=== PATIENT | female | born 1940 | race Caucasian/White ===

== ENCOUNTER 2017-10-16 12:27 | Inpatient (IN) ==
--- NOTE | 2017-10-16 12:46 | Emergency Department Note ---
ED Disposition Clinical Impression: Colitis, Sinus tachycardia, Hyperglycemia UTI (urinary tract infection) Qualifiers: Urinary tract infection type: site unspecified Hematuria presence: without hematuria Qualified Code(s): N39.0 - Urinary tract infection, site not specified Disposition: Still a Patient Condition on Discharge: Fair Referrals: Vandana Plaza MD [Primary Care Provider] - - Critical Care Critical Care Time: No Attestation: On , the high probability of a clinically significant, sudden or life threatening deterioration of the following system(s) required my full and direct attention, intervention and personal management. The time I documented below is in addition to time spent performing reported procedures but includes the following listed in this critical care notation. Medical Decision Making - Win Inquiry Pt receiving controlled substance: No Vital Signs: 10/16/17 12:36 10/16/17 13:56 10/16/17 14:51 Temperature 98.0 F Temperature Source Temporal Artery Scan Pulse Rate [Right Brachial] 128 H 114 H 106 H Respiratory Rate 18 20 18 Blood Pressure [Right Arm] 175/100 158/81 160/97 Blood Pressure Mean [Right Arm] 125 106 118 Blood Pressure Source [Right Arm] Automatic Cuff Automatic Cuff Automatic Cuff Blood Pressure Position [Right Arm] Sitting Supine Sitting 02 Sat by Pulse Oximetry 97 100 98 Oxygen Delivery Method Room Air Room Air Room Air - Lab Data Lab Results 10/16/17 12:42: WBC 9.2, RBC 4.88, Hgb 13.1, Hct 42.5, MCV 87.0, MCH 26.9 L, MCHC 30.9 L, RDW 13.4, Plt Count 351, MPV 7.4, Neut % (Auto) 70.7, Lymph % (Auto ) 19.2, [place] % (Auto) 6.8, Eos % (Auto) 2.9, Baso % (Auto) 0.4, Neut # (Auto) 6.5, Lymph # (Auto) 1.8, [place] # (Auto) 0.6, Eos # (Auto) 0.3, Baso # (Auto) 0.0 10/16/17 12:42: Sodium 138, Potassium 3.2 L, Chloride 98, Carbon Dioxide 27, Anion Gap 16.2 H, BUN 13, Creatinine 0.97, Estimated Creat Clear 60, Estimated GFR 56 L, Est GFR ( Amer) 68, Glucose 209 H, Calcium 9.9, Total Bilirubin 0.5, AST 18, ALT 22, Alkaline Phosphatase 148 H, Total Protein 8.4 H, Albumin 3.7, Globulin 4.7 H, Albumin/Globulin Ratio 0.8 L 10/16/17 12:42: Troponin I < 0.02, Amylase 32, Lipase 95, TSH 0.88, Free T4 Index 4.1 L, Thyroxine (T4) 11.8, T3 Uptake 35 10/16/17 12:55: Stool Occult Blood Negative 10/16/17 13:20: Urine Color Yellow, Urine Appearance Cloudy, Urine pH 6.0, Ur Specific [place] >= 1.030, Urine Protein 1+, Urine Glucose (UA) Negative, Urine Ketones Trace, Urine Blood Negative, Urine Nitrate Negative, Urine Bilirubin Negative, Urine Urobilinogen 1.0, Ur Leukocyte Esterase 2+ A, Urine WBC 20-50, Ur Squamous Epith Cells 20-50, Urine Bacteria 4+, Urine Mucus 4+, Stool Occult Blood Cancelled Result diagrams: 10/16/17 12:42 10/16/17 12:42 Orders (Tests/Meds): ED MEDICATIONS Generic Name Dose Route Start Last Admin Trade Name Freq PRN Reason Stop Dose Admin Levofloxacin/Dextrose 750 mg in 150 mls @ 100 mls/hr 10/16/17 15:15 10/16/17 16:05 Levofloxacin 750mg/150ml Premix IV 10/30/17 15:14 100 mls/hr Q24H EZE Administration Protocol Discontinued Medications Generic Name Dose Route Start Last Admin Trade Name Freq PRN Reason Stop Dose Admin Metronidazole 100 mls @ 100 mls/hr 10/16/17 15:13 10/16/17 15:39 Flagyl 500mg/100ml Ivpb IV 10/16/17 16:12 100 mls/hr ONCE ONE Administration Protocol Iopamidol 75 ml 10/16/17 14:42 10/16/17 14:43 [id number]; 75ml Vial IV 10/16/17 14:43 75 ml ONCE ONE Administration Potassium Chloride 40 meq 10/16/17 15:13 10/16/17 15:39 Klor-Con 20meq Tablet PO 10/16/17 15:14 40 meq ONCE ONE Administration Sodium Chloride 10 ml 10/16/17 14:42 06/02/18 14:43 Rad-Saline Flush 10ml Syringe IV 10/16/17 14:43 10 ml ONCE ONE Administration Sodium Chloride 1,000 ml 10/16/17 15:18 10/16/17 15:31 Sod Chlor 0.9% 1000ml Bag IV 10/16/17 15:19 1,000 ml BOLUS ONE Administration ORDERS Category Date Time Status Urine Culture Stat Micro 10/16/17 13:20 Received - CT Data CT Scan: Abdomen, Pelvis Time Received: 15:[address] Reviewed: Yes: I have viewed the radiologist's interpretation Findings Narrative: Consistent with colitis. Diverticulosis without diverticulitis. - ECG Data Tracing #1 EKG interpreted by Anders Stiles MD: Rhythm: sinus tachycardia Rate: 123 [place]: normal Ectopy: none Conduction: normal ST Segment Changes: none T Wave Changes: none Q Waves: none No evidence of acute ischemia or injury Poor R-wave progression General Adult HPI - General Chief complaint: Abdominal Pain Stated complaint: Abd Pain Time Seen by Provider: 10/16/17 12:45 Mode of Arrival: Wheelchair Limitations: No Limitations Description of Symptoms (Recalled from ER Triage Doc. by RN): soft reddish stool and belly discomfort; feels like might have a hemorrhoid down there but not sure (rectum). been going on for a few days - History of Present Illness HPI narrative: Abdominal problems since after [place], approximately 6 months. She complains of generalized abdominal pain and cramping, thin caliber soft stools, occasional blood in stool. Denies vomiting or fever. Has tried over-the- counter ibuprofen without relief. Has not seen her PCP. States she has never had a colonoscopy. She is on no prescription medications at this time. - Related Data Home Medications Medication Instructions Recorded Confirmed No Known Home Medications 10/16/17 10/16/17 Allergies Allergy/AdvReac Type Severity Reaction Status Date / Time No Known Allergies Allergy Verified 10/16/17 12:40 [facility] History I have reviewed the patient's past medical history: Yes Medical History: Denies:: Diabetes Mellitus Type 1, Diabetes Mellitus Type 2 - Social History Educational Level: Completed High School Smoking Status: Unknown if ever smoked Alcohol Intake: never - Psychiatric History Expresses thoughts of harming self/others: None Suicide Plan Description: No Plan ROS Obtained: Yes All systems reviewed & no additional complaints - Constitutional Constitutional: Denies fever(s) - Cardiovascular Cardiovascular: Denies chest pain - Gastrointestinal Gastrointestingal: Reports: abdominal pain, bloating, change in bowel habits, cramping, excessive passing of gas, bright red blood in stools Physical Exam - General General appearance: alert, in no apparent distress, anxious - Head Head exam: atraumatic, normocephalic, normal inspection - Eye Eye exam: Present: normal appearance, PERRL, EOMI - ENT ENT exam: Present: normal exam, normal oropharynx, mucous membranes moist, TM's normal bilaterally, normal external ear exam - Neck Neck exam: Present: normal inspection, full ROM, trachea midline. Absent: meningismus, lymphadenopathy - Chest Chest inspection: Present: normal inspection, symmetric chest wall rise. Absent : tenderness - Respiratory Respiratory exam: Present: normal lung sounds bilaterally. Absent: respiratory distress - Cardiovascular Cardiovascular exam: Present: regular rate, normal rhythm. Absent: JVD - Abdominal Exam Abdominal exam: Present: soft, tenderness, normal bowel sounds. Absent: distention, guarding Abdominal tenderness: Present: diffuse - Rectal Exam comment: External hemorrhoids. No active bleeding, no thrombosed hemorrhoids. No rectal masses palpated. Stool is soft brown without visible blood. - Extremities Exam Extremities exam: Present: normal inspection, full ROM, normal capillary refill. Absent: calf tenderness - Back Exam Back exam: Present: normal inspection. Absent: tenderness - Neurological Exam Neurological exam: Present: alert, oriented X3 - Psychiatric Psychiatric exam: Present: normal affect, normal mood - Skin Skin exam: Present: warm, dry, intact, normal color - Lymphatic Lymphatic Findings: no adenopathy
[2017-10-16 12:59] LABS: Basophils % 0.4 % (0.1-2.0); Eosinophils # 0.3 K/mm3 (0.0-0.4); Eosinophils % 2.9 % (0.1-12.0); Hematocrit 42.5 % (37.0-47.0); Hemoglobin 13.1 g/dL (12.2-16.2); Lymphocytes # 1.8 K/mm3 (0.7-4.5); Lymphocytes % 19.2 K/mm3 (10-50); Mean Corpuscular HGB Conc 30.9 g/dL (31.8-35.4); Mean Corpuscular Hemoglobin 26.9 pg (27.0-31.2); Mean Platelet Volume 7.4 fl (7.4-10.4); Monocytes # 0.6 K/mm3 (0.1-1.0); Monocytes % 6.8 % (1.7-9.3); Neutrophils # 6.5 K/mm3 (1.8-7.8); Neutrophils % 70.7 % (37.0-80.0); Platelet Count 351 K/mm3 (142-424); Red Blood Count 4.88 M/mm3 (4.20-5.40); Red Cell Distribution Width 13.4 % (11.5-17.5); White Blood Count 9.2 K/mm3 (4.8-10.8)
[2017-10-16 13:06] LABS: Albumin Level 3.7 gm/dL (3.4-5.0); Albumin/Globulin Ratio 0.8 (1.1-1.8); Anion Gap 16.2 mEq/L (5-15); Bilirubin,Total 0.5 mg/dL (0.2-1.0); Calcium 9.9 mg/dL (8.5-10.1); Globulin 4.7 gm/dl (1.3-3.2); Potassium 3.2 mmoL/L (3.5-5.1); Total Protein,Serum 8.4 gm/dL (6.4-8.2)
[2017-10-16 13:24] LABS: Amylase 32 U/L (25-125); Free Thyroxine Index 4.1 ug/dL (5.93-13.13); Lipase 95 u/L (73-393); T4 (Thyroxine) 11.8 ug/dl (4.7-13.3); Thyroid Stimulating Hormone 0.88 uIU/ml (0.358-3.740); Triiodothryronine (T3) Uptake 35 % (31-39)
[2017-10-16 13:25] LABS: Microscopic, Urine URINE MICROSCOPIC (MICROSCOPIC)
[2017-10-16 13:26] LABS: Appearance,Urine CLOUDY (Clear); Blood, Urine Negative (Negative); Color,Urine YELLOW (Yellow); Glucose,Urine (UA) Negative (Negative); Ketones,Urine TRACE (Negative); Leukocyte Esterase,Urine 2+ (Negative); Protein,Urine 1+ (Negative); Specific Gravity, Urine >= 1.030 (1.005-1.030)
[2017-10-16 13:42] LABS: Bilirubin,Urine Negative (Negative)
[2017-10-16 13:43] LABS: Bacteria,Urine 4+ /lpf; Mucus,Urine 4+ /lpf; Squamous Epithelial Cell,Urine 20-50 #/hpf (0-5); WBC,Urine 20-50 #/hpf (0-3)
[2017-10-17 06:31] LABS: Anion Gap 13.8 mEq/L (5-15); Potassium 3.8 mmoL/L (3.5-5.1)
--- NOTE | 2017-10-17 08:12 | History & Physical Report ---
*Admission Date: 10/16/17 *Chief complaint: Left lower quadrant abdominal pain and nausea *History of present illness: Pleasant 77-year-old white female who takes no medications and has not seen a doctor in over 6 months, who over the past several months has struggled with left lower quadrant pain, some chronic abdominal pain issues, vomiting and occasional nausea. She has been following a very high-fiber diet with a lot of shredded wheat, and taking ibuprofen for her abdominal discomfort. This became intolerable and she came to the emergency department last night where she was found to have acute kidney injury, and abdominal pain, CT scan showed evidence of colitis, and diverticulitis. She was admitted to hospital for IV antibiotics, fluids and further diagnostic testing. [facility] History I have reviewed the patient's past medical history: Yes Medical History: Denies:: Diabetes Mellitus Type 1, Diabetes Mellitus Type 2 - *Social History Educational Level: Completed GED/General Educational Development Smoking Status: Never smoker Alcohol Intake: never Occupational Status: retired Housing: apartment - Psychiatric History Expresses thoughts of harming self/others: None Suicide Plan Description: No Plan *Family Hx:: Coronary Artery Disease, Heart Attack, Hyperlipidemia, Hypertension Review of Systems - Review of Systems Review of systems:: unable to obtain, other, pertinent systems reviewed and negative unless documented below Meds Home Medications Medication Instructions Recorded Confirmed Type No Known Home Medications 10/16/17 10/16/17 History Allergies Allergy/AdvReac Type Severity Reaction Status Date / Time No Known Allergies Allergy Verified 10/16/17 12:40 Exam Vital signs and Labs for Last 24 Hours: Temp Pulse Resp BP Pulse Ox 98.1 F 84 18 154/73 98 10/17/17 07:56 10/17/17 07:56 10/17/17 07:56 10/17/17 07:56 10/17/17 07:56 Laboratory Results - last 24 hr 10/16/17 12:42: WBC 9.2, RBC 4.88, Hgb 13.1, Hct 42.5, MCV 87.0, MCH 26.9 L, MCHC 30.9 L, RDW 13.4, Plt Count 351, MPV 7.4, Neut % (Auto) 70.7, Lymph % (Auto ) 19.2, [place] % (Auto) 6.8, Eos % (Auto) 2.9, Baso % (Auto) 0.4, Neut # (Auto) 6.5, Lymph # (Auto) 1.8, [place] # (Auto) 0.6, Eos # (Auto) 0.3, Baso # (Auto) 0.0 10/16/17 12:42: Sodium 138, Potassium 3.2 L, Chloride 98, Carbon Dioxide 27, Anion Gap 16.2 H, BUN 13, Creatinine 0.97, Estimated Creat Clear 60, Estimated GFR 56 L, Est GFR ( Amer) 68, Glucose 209 H, Calcium 9.9, Total Bilirubin 0.5, AST 18, ALT 22, Alkaline Phosphatase 148 H, Total Protein 8.4 H, Albumin 3.7, Globulin 4.7 H, Albumin/Globulin Ratio 0.8 L 10/16/17 12:42: Troponin I < 0.02, Amylase 32, Lipase 95, TSH 0.88, Free T4 Index 4.1 L, Thyroxine (T4) 11.8, T3 Uptake 35 10/16/17 12:55: Stool Occult Blood Negative 10/16/17 13:20: Urine Color Yellow, Urine Appearance Cloudy, Urine pH 6.0, Ur Specific [place] >= 1.030, Urine Protein 1+, Urine Glucose (UA) Negative, Urine Ketones Trace, Urine Blood Negative, Urine Nitrate Negative, Urine Bilirubin Negative, Urine Urobilinogen 1.0, Ur Leukocyte Esterase 2+ A, Urine WBC 20-50, Ur Squamous Epith Cells 20-50, Urine Bacteria 4+, Urine Mucus 4+, Stool Occult Blood Cancelled 10/16/17 17:58: POC Glucose 84 10/16/17 21:42: POC Glucose 89 10/17/17 05:40: Sodium 141, Potassium 3.8, Chloride 103, Carbon Dioxide 28, Anion Gap 13.8, BUN 8 D, Creatinine 0.68 D, Estimated Creat Clear 63, Estimated GFR 84, Est GFR ( Amer) 102 D, Glucose 108 H D 10/17/17 06:14: POC Glucose 104 I & O for Last 24 hours: Intake & Output 10/14/17 10/15/17 10/16/17 10/17/17 11:59 11:59 11:59 11:59 Intake Total 180 / 180 Balance 180 / 180 Weight 184 lb Microbiology Reports for the Last 24 Hours: Microbiology 10/16/17 13:20 Urine,Clean Catch Urine Culture - Preliminary Narrative: Pleasant white female. Alert, oriented 3. Oropharynx clear. Cranial nerves intact. Heart rate regular without murmurs. Lungs are clear. Abdomen is soft , does have tenderness along the left flank area but no rebound or guarding. No upper quadrant tenderness. No masses. No CVA tenderness. No peripheral edema or clubbing. H&P: Result - Labs Labs: Short CBC 10/16/17 Range/Units 12:42 WBC 9.2 (4.8-10.8) K/mm3 Hgb 13.1 (12.2-16.2) g/dL Hct 42.5 (37.0-47.0) % Plt Count 351 (142-424) K/mm3 BMP 10/16/17 10/17/17 12:42 05:40 Sodium 138 141 Potassium 3.2 L 3.8 Chloride 98 103 Carbon Dioxide 27 28 BUN 13 8 D Creatinine 0.97 0.68 D Glucose 209 H 108 H D Calcium 9.9 Cardiac Enzymes 10/16/17 Range/Units 12:42 Troponin I < 0.02 (0.00-0.06) ng/ml Liver Function 10/16/17 Range/Units 12:42 Total Bilirubin 0.5 (0.2-1.0) mg/dL AST 18 (15-37) U/L ALT 22 (12-78) U/L Alkaline Phosphatase 148 H (46-116) U/L Albumin 3.7 (3.4-5.0) gm/dL Urine 10/16/17 Range/Units 13:20 Urine Color Yellow (Yellow) Urine Appearance Cloudy (Clear) Urine pH 6.0 (5.0-8.5) Ur Specific [place] >= 1.030 (1.005-1.030) Urine Protein 1+ (Negative) Urine Glucose (UA) Negative (Negative) Assessment and Plan (1) Colitis Current visit: Yes Status: Acute Category: Medical Code(s): K52.9 - Noninfective gastroenteritis and colitis, unspecified (2) UTI (urinary tract infection) Current visit: Yes Status: Acute Qualifiers: Urinary tract infection type: site unspecified Hematuria presence: without hematuria Qualified Code(s): N39.0 - Urinary tract infection, site not specified Category: Medical Code(s): N39.0 - Urinary tract infection, site not specified - Assessment and plan all Dx Assessment and Plan for all problems:: Agree with admission to hospital. Continue current antibiotics. Cautiously advance diet. Back down to clear liquids if she has problems this morning. Gallbladder ultrasound was done this morning. Follow report. Check labs tomorrow morning. Discussed with patient that she will need colonoscopy in the near future.
--- NOTE | 2017-10-17 10:28 | Pharmacy Consult Notes ---
[facility] Pharmacy VTE Monitoring - Patient Demographics Admission date: 10/17/17 Report Date: 10/17/17 Time: 10:28 Allergies/Adverse Reactions: Patient Allergies No Known Allergies Allergy (Verified 10/16/17 12:40) Height: 1.6 m Weight: 83.461 kg Patient Problems: Current Active Problems Colitis (Acute) UTI (urinary tract infection) (Acute) Sinus tachycardia (Acute) Hyperglycemia (Acute) - VTE Risk Labs: VTE Related Lab Results Hgb 13.1 g/dL (12.2-16.2) 10/16/17 12:42 Hct 42.5 % (37.0-47.0) 10/16/17 12:42 Plt Count 351 K/mm3 (142-424) 10/16/17 12:42 BUN 8 mg/dL (7-18) D 10/17/17 05:40 Creatinine 0.68 mg/dL (0.55-1.02) D 10/17/17 05:40 Estimated Creat Clear 63 mL/min (0-300) 10/17/17 05:40 VTE Risk Level: Low Risk - Prophylaxis Types of VTE Prophylaxis: TEDS Knee High Location of Applied Device: Bilateral Lower Extremeties (TEDS ORDERED)
[2017-10-18 06:04] LABS: Basophils % 0.4 % (0.1-2.0); Eosinophils # 0.3 K/mm3 (0.0-0.4); Eosinophils % 4.2 % (0.1-12.0); Hematocrit 33.5 % (37.0-47.0); Hemoglobin 10.2 g/dL (12.2-16.2); Lymphocytes # 1.3 K/mm3 (0.7-4.5); Lymphocytes % 19.1 K/mm3 (10-50); Mean Corpuscular HGB Conc 30.4 g/dL (31.8-35.4); Mean Corpuscular Hemoglobin 26.7 pg (27.0-31.2); Mean Platelet Volume 7.9 fl (7.4-10.4); Monocytes # 0.6 K/mm3 (0.1-1.0); Monocytes % 9.4 % (1.7-9.3); Neutrophils # 4.5 K/mm3 (1.8-7.8); Neutrophils % 66.8 % (37.0-80.0); Platelet Count 237 K/mm3 (142-424); Red Blood Count 3.81 M/mm3 (4.20-5.40); Red Cell Distribution Width 13.5 % (11.5-17.5); White Blood Count 6.8 K/mm3 (4.8-10.8)
[2017-10-18 06:18] LABS: Albumin Level 2.7 gm/dL (3.4-5.0); Albumin/Globulin Ratio 0.8 (1.1-1.8); Anion Gap 8.7 mEq/L (5-15); Bilirubin,Total 0.4 mg/dL (0.2-1.0); Globulin 3.5 gm/dl (1.3-3.2); Potassium 3.7 mmoL/L (3.5-5.1); Total Protein,Serum 6.2 gm/dL (6.4-8.2)
--- NOTE | 2017-10-18 06:49 | Progress Note ---
Internal Medicine - PN: Subj *Date: 10/18/17 *Time: 06:47 Interval history: Patient does not feel well this morning. She tells me she had onset of some crampy abdominal pain with passing of loose stool followed by nausea and urge to vomit. She has not vomited yet. Up until this point the last 24 hours had gone relatively well for the patient. She denies any fevers. She denies blood in her stool Exam Vital signs and Labs for Last 24 Hours: Temp Pulse Resp BP Pulse Ox 98.3 F 79 20 144/71 97 10/18/17 04:05 10/18/17 04:05 10/18/17 04:05 10/18/17 04:05 10/18/17 04:05 Laboratory Results - last 24 hr 10/17/17 11:21: POC Glucose 114 H 10/17/17 16:54: POC Glucose 99 10/17/17 19:52: POC Glucose 113 H 10/18/17 05:30: WBC 6.8 D, RBC 3.81 L, Hgb 10.2 L, Hct 33.5 L, MCV 88.0, MCH 26.7 L, MCHC 30.4 L, RDW 13.5, Plt Count 237 D, MPV 7.9, Neut % (Auto) 66.8, Lymph % (Auto) 19.1, [place] % (Auto) 9.4 H, Eos % (Auto) 4.2, Baso % (Auto) 0.4, Neut # (Auto) 4.5, Lymph # (Auto) 1.3, [place] # (Auto) 0.6, Eos # (Auto) 0.3, Baso # (Auto) 0.0 10/18/17 05:30: Sodium 140, Potassium 3.7, Chloride 106, Carbon Dioxide 29, Anion Gap 8.7, BUN 6 L, Creatinine 0.68, Estimated Creat Clear 63, Estimated GFR 84, Est GFR ( Amer) 102, Glucose 111 H, Total Bilirubin 0.4, AST 13 L D, ALT 17, Alkaline Phosphatase 99, Total Protein 6.2 L D, Albumin 2.7 L, Globulin 3.5 H, Albumin/Globulin Ratio 0.8 L 10/18/17 06:10: POC Glucose 106 I & O for Last 24 hours: Intake & Output 10/15/17 10/16/17 10/17/17 10/18/17 11:59 11:59 11:59 11:59 Intake Total 280 / 280 900 / 900 Balance 280 / 280 900 / 900 Weight 184 lb Microbiology Reports for the Last 24 Hours: Microbiology 10/16/17 13:20 Urine,Clean Catch Urine Culture - Preliminary Narrative: Patient is awake and alert and looks like she does not feel well. Lungs are clear. Heart has a regular rate and rhythm. Abdomen is soft with left flank and left lower quadrant tenderness to palpation without rebound tenderness or guarding. Bowel sounds are present. Assessment and Plan (1) Colitis Current visit: Yes Status: Acute Category: Medical Code(s): K52.9 - Noninfective gastroenteritis and colitis, unspecified (2) UTI (urinary tract infection) Current visit: Yes Status: Acute Qualifiers: Urinary tract infection type: site unspecified Hematuria presence: without hematuria Qualified Code(s): N39.0 - Urinary tract infection, site not specified Category: Medical Code(s): N39.0 - Urinary tract infection, site not specified (3) Hyperglycemia Current visit: Yes Status: Acute Category: Medical Code(s): R73.9 - Hyperglycemia, unspecified - Assessment and plan all Dx Assessment and Plan for all problems:: 1. Continue current IV antibiotic regimen and reassess this afternoon 2. Check A1c
[2017-10-18 08:56] LABS: Calcium 8.9 mg/dL (8.5-10.1)
--- NOTE | 2017-10-18 09:00 | Consult Report ---
<Dot Borja - Last Filed: 10/18/17 08:56> *Admission Date: 10/17/17 *Chief complaint: colitis *History of present illness: Pleasant 77-year-old white female who takes no medications and has not seen a doctor in over 6 months, who over the past several months has struggled with left lower quadrant pain, some chronic abdominal pain issues, vomiting and occasional nausea. She has been following a very high-fiber diet with a lot of shredded wheat, and taking ibuprofen for her abdominal discomfort. This became intolerable and she came to the emergency department where she was found to have acute kidney injury, and abdominal pain, CT scan showed evidence of colitis, and diverticulitis. She was admitted to hospital for IV antibiotics, fluids and further diagnostic testing. GI was consulted. Pt is on IV ABX and planned to be d/c home today per PCP. [facility] History Medical History: Denies:: Diabetes Mellitus Type 1, Diabetes Mellitus Type 2 - *Social History Educational Level: Completed GED/General Educational Development Smoking Status: Never smoker Alcohol Intake: never Occupational Status: retired Housing: apartment - Psychiatric History Expresses thoughts of harming self/others: None Suicide Plan Description: No Plan *Family Hx:: Coronary Artery Disease, Heart Attack, Hyperlipidemia, Hypertension Review of Systems - Review of Systems Review of systems:: pertinent systems reviewed and negative unless documented below - Constitutional Reports malaise - *Gastrointestinal Reports abdominal pain, Reports change in stools, Reports nausea Meds Home Medications Medication Instructions Recorded Confirmed Type No Known Home Medications 10/16/17 10/16/17 History Allergies Allergy/AdvReac Type Severity Reaction Status Date / Time No Known Allergies Allergy Verified 10/16/17 12:40 Exam Vital signs and Labs for Last 24 Hours: Temp Pulse Resp BP Pulse Ox 98.6 F 81 16 167/79 97 10/18/17 08:00 10/18/17 08:00 10/18/17 08:00 10/18/17 08:00 10/18/17 08:05 Laboratory Results - last 24 hr 10/17/17 11:21: POC Glucose 114 H 10/17/17 16:54: POC Glucose 99 10/17/17 19:52: POC Glucose 113 H 10/18/17 05:30: WBC 6.8 D, RBC 3.81 L, Hgb 10.2 L, Hct 33.5 L, MCV 88.0, MCH 26.7 L, MCHC 30.4 L, RDW 13.5, Plt Count 237 D, MPV 7.9, Neut % (Auto) 66.8, Lymph % (Auto) 19.1, [place] % (Auto) 9.4 H, Eos % (Auto) 4.2, Baso % (Auto) 0.4, Neut # (Auto) 4.5, Lymph # (Auto) 1.3, [place] # (Auto) 0.6, Eos # (Auto) 0.3, Baso # (Auto) 0.0 10/18/17 05:30: Sodium 140, Potassium 3.7, Chloride 106, Carbon Dioxide 29, Anion Gap 8.7, BUN 6 L, Creatinine 0.68, Estimated Creat Clear 63, Estimated GFR 84, Est GFR ( Amer) 102, Glucose 111 H, Total Bilirubin 0.4, AST 13 L D, ALT 17, Alkaline Phosphatase 99, Total Protein 6.2 L D, Albumin 2.7 L, Globulin 3.5 H, Albumin/Globulin Ratio 0.8 L 10/18/17 06:10: POC Glucose 106 10/18/17 07:15: Hemoglobin A1c 5.7 I & O for Last 24 hours: Intake & Output 10/15/17 10/16/17 10/17/17 10/18/17 23:59 23:59 23:59 23:59 Intake Total 180 / 180 1000 / 1000 2709 / 2709 Balance 180 / 180 1000 / 1000 2709 / 2709 Weight 184 lb 184 lb Microbiology Reports for the Last 24 Hours: Microbiology 10/16/17 13:20 Urine,Clean Catch Urine Culture - Preliminary - *Routine Abdominal Exam Present: soft, tenderness Comments: LLQ tenderness Internal Medicine - CN: Reslt - Labs CBC & Chem 7: 10/18/17 05:30 10/18/17 05:30 Labs: Short CBC 10/18/17 Range/Units 05:30 WBC 6.8 D (4.8-10.8) K/mm3 Hgb 10.2 L (12.2-16.2) g/dL Hct 33.5 L (37.0-47.0) % Plt Count 237 D (142-424) K/mm3 BMP 10/18/17 05:30 Sodium 140 Potassium 3.7 Chloride 106 Carbon Dioxide 29 BUN 6 L Creatinine 0.68 Glucose 111 H Liver Function 10/18/17 Range/Units 05:30 Total Bilirubin 0.4 (0.2-1.0) mg/dL AST 13 L D (15-37) U/L ALT 17 (12-78) U/L Alkaline Phosphatase 99 (46-116) U/L Albumin 2.7 L (3.4-5.0) gm/dL Assessment and Plan (1) Colitis Current visit: Yes Status: Acute Category: Medical Code(s): K52.9 - Noninfective gastroenteritis and colitis, unspecified (2) UTI (urinary tract infection) Current visit: Yes Status: Acute Qualifiers: Urinary tract infection type: site unspecified Hematuria presence: without hematuria Qualified Code(s): N39.0 - Urinary tract infection, site not specified Category: Medical Code(s): N39.0 - Urinary tract infection, site not specified (3) Hyperglycemia Current visit: Yes Status: Acute Category: Medical Code(s): R73.9 - Hyperglycemia, unspecified - Assessment and plan all Dx Assessment and Plan for all problems:: Agree with oral ABXC at d/c and with pain meds. Pt needs to stop all NSAID therapy and use only Tylenol products. Pt to f/u with me in the outpt clininc in 2-3 weeks and will schedule colonoscopy at that time for eval. Low Residue diet is preferred. <Vin Quinonez - Last Filed: 10/18/17 14:47> *History of present illness: I agree with oral antibiotics, soft lower residue diet, avoidance of NSAIDs and the patient will follow-up in the specialty clinic in 2 or 3 weeks. At that point, would schedule outpatient diagnostic colonoscopy. Exam Vital signs and Labs for Last 24 Hours: Temp Pulse Resp BP Pulse Ox 98.6 F 81 16 167/79 97 10/18/17 08:00 10/18/17 08:00 10/18/17 08:00 10/18/17 08:00 10/18/17 08:05 Laboratory Results - last 24 hr 10/17/17 11:21: POC Glucose 114 H 10/17/17 16:54: POC Glucose 99 10/17/17 19:52: POC Glucose 113 H 10/18/17 05:30: WBC 6.8 D, RBC 3.81 L, Hgb 10.2 L, Hct 33.5 L, MCV 88.0, MCH 26.7 L, MCHC 30.4 L, RDW 13.5, Plt Count 237 D, MPV 7.9, Neut % (Auto) 66.8, Lymph % (Auto) 19.1, [place] % (Auto) 9.4 H, Eos % (Auto) 4.2, Baso % (Auto) 0.4, Neut # (Auto) 4.5, Lymph # (Auto) 1.3, [place] # (Auto) 0.6, Eos # (Auto) 0.3, Baso # (Auto) 0.0 10/18/17 05:30: Sodium 140, Potassium 3.7, Chloride 106, Carbon Dioxide 29, Anion Gap 8.7, BUN 6 L, Creatinine 0.68, Estimated Creat Clear 63, Estimated GFR 84, Est GFR ( Amer) 102, Glucose 111 H, Calcium 8.9 D, Total Bilirubin 0.4, AST 13 L D, ALT 17, Alkaline Phosphatase 99, Total Protein 6.2 L D, Albumin 2.7 L, Globulin 3.5 H, Albumin/Globulin Ratio 0.8 L 10/18/17 06:10: POC Glucose 106 10/18/17 07:15: Hemoglobin A1c 5.7 10/18/17 11:13: POC Glucose 99 I & O for Last 24 hours: Intake & Output 10/15/17 10/16/17 10/17/17 10/18/17 23:59 23:59 23:59 23:59 Intake Total 180 / 180 1150 / 1150 2809 / 2809 Balance 180 / 180 1150 / 1150 2809 / 2809 Weight 83.461 kg 83.461 kg Microbiology Reports for the Last 24 Hours: Microbiology 10/16/17 13:20 Urine,Clean Catch Urine Culture - Final Multiple organisms, suggests contamination. Internal Medicine - CN: Reslt - Labs CBC & Chem 7: 10/18/17 05:30 10/18/17 05:30 Labs: Short CBC 10/18/17 Range/Units 05:30 WBC 6.8 D (4.8-10.8) K/mm3 Hgb 10.2 L (12.2-16.2) g/dL Hct 33.5 L (37.0-47.0) % Plt Count 237 D (142-424) K/mm3 BMP 10/18/17 05:30 Sodium 140 Potassium 3.7 Chloride 106 Carbon Dioxide 29 BUN 6 L Creatinine 0.68 Glucose 111 H Calcium 8.9 D Liver Function 10/18/17 Range/Units 05:30 Total Bilirubin 0.4 (0.2-1.0) mg/dL AST 13 L D (15-37) U/L ALT 17 (12-78) U/L Alkaline Phosphatase 99 (46-116) U/L Albumin 2.7 L (3.4-5.0) gm/dL Assessment and Plan (1) Colitis Current visit: Yes Status: Acute Category: Medical Code(s): K52.9 - Noninfective gastroenteritis and colitis, unspecified (2) UTI (urinary tract infection) Current visit: Yes Status: Acute Qualifiers: Urinary tract infection type: site unspecified Hematuria presence: without hematuria Qualified Code(s): N39.0 - Urinary tract infection, site not specified Category: Medical Code(s): N39.0 - Urinary tract infection, site not specified (3) Hyperglycemia Current visit: Yes Status: Acute Category: Medical Code(s): R73.9 - Hyperglycemia, unspecified
[2017-10-19 06:52] LABS: Basophils % 0.5 % (0.1-2.0); Eosinophils # 0.2 K/mm3 (0.0-0.4); Eosinophils % 3.2 % (0.1-12.0); Hematocrit 35.1 % (37.0-47.0); Lymphocytes # 1.3 K/mm3 (0.7-4.5); Lymphocytes % 18.6 K/mm3 (10-50); Mean Corpuscular HGB Conc 31.3 g/dL (31.8-35.4); Mean Corpuscular Hemoglobin 27.4 pg (27.0-31.2); Mean Corpuscular Volume 87.4 fl (81-99); Mean Platelet Volume 8.4 fl (7.4-10.4); Monocytes # 0.5 K/mm3 (0.1-1.0); Monocytes % 7.6 % (1.7-9.3); Neutrophils # 4.9 K/mm3 (1.8-7.8); Neutrophils % 70.2 % (37.0-80.0); Platelet Count 260 K/mm3 (142-424); Red Blood Count 4.02 M/mm3 (4.20-5.40); Red Cell Distribution Width 13.5 % (11.5-17.5)
--- NOTE | 2017-10-19 07:01 | Discharge Summary ---
General - General Admission date:: 10/18/17 Discharge date: 10/19/17 HPI HPI: Pleasant 77-year-old white female who takes no medications and has not seen a doctor in over 6 months, who over the past several months has struggled with left lower quadrant pain, some chronic abdominal pain issues, vomiting and occasional nausea. She has been following a very high-fiber diet with a lot of shredded wheat, and taking ibuprofen for her abdominal discomfort. This became intolerable and she came to the emergency department last night where she was found to have acute kidney injury, and abdominal pain, CT scan showed evidence of colitis, and diverticulitis. She was admitted to hospital for IV antibiotics, fluids and further diagnostic testing. Hospital Course Hospital Course: Patient was admitted and placed on Levaquin and metronidazole. She had good response to IV antibiotics. Diarrhea panel was performed and was negative for viral or bacterial source of infection. On the morning of October 18 patient had an episode of increased abdominal pain with diarrhea. GI was consulted and agreed with treatment to continue IV antibiotics, avoid NSAIDs and patient would need colonoscopy in the future. She will follow-up in the GI clinic in 2- 3 weeks. On the morning of the the patient continued to have some loose stools but overall felt better with significant decrease in her pain. She was tolerating liquids and some low residue foods. Patient was discharged home. She will follow-up in my office in 1 week. Follow-up in GI clinic in 2-3 weeks. Objective Vital signs: Temp Pulse Resp BP Pulse Ox 97.7 F 85 22 144/78 96 10/19/17 03:58 10/19/17 03:58 10/19/17 03:58 10/19/17 03:58 10/19/17 03:58 Results Labs on day of discharge: Labs from last 24 hours 10/19/17 10/19/17 10/18/17 06:26 05:58 21:54 WBC 7.0 RBC 4.02 L Hgb 11.0 L Hct 35.1 L MCV 87.4 MCH 27.4 MCHC 31.3 L RDW 13.5 Plt Count 260 MPV 8.4 Neut % (Auto) 70.2 Lymph % (Auto) 18.6 [place] % (Auto) 7.6 Eos % (Auto) 3.2 Baso % (Auto) 0.5 Neut # (Auto) 4.9 Lymph # (Auto) 1.3 [place] # (Auto) 0.5 Eos # (Auto) 0.2 Baso # (Auto) 0.0 POC Glucose 106 Hemoglobin A1c Calcium Stl Aeromonas (PCR) Not detected Stl C. cayetanensis PCR Not detected Stool Rotavirus (PCR) Not detected Stl Adenov F 40/41 PCR Not detected Stool Astrovirus (PCR) Not detected Stool Campylobacter PCR Not detected Stl C.difficile Tox PCR Not detected Stool Cryptosporidium PCR Not detected Stl E.coli Shiga Tox PCR Not detected Stool E coli O157 PCR Not detected Stl Enterotoxigenic E PCR Not detected Stool EPEC (PCR) Not detected Stool EAEC (PCR) Not detected Stl E. histolytica PCR Not detected Stool Giardia Lamblia PCR Not detected Stool Salmonella PCR Not detected Stool Sapovirus (PCR) Not detected Stl P. shigelloides PCR Not detected Stl Shigella/EIEC PCR Not detected St Y.enterocolitica PCR Not detected Stool Vibrio (PCR) Not detected Stl Vibrio cholerae PCR Not detected Stl Norovirus GI/GII PCR Not detected 10/18/17 10/18/17 10/18/17 20:01 16:35 11:13 WBC RBC Hgb Hct MCV MCH MCHC RDW Plt Count MPV Neut % (Auto) Lymph % (Auto) [place] % (Auto) Eos % (Auto) Baso % (Auto) Neut # (Auto) Lymph # (Auto) [place] # (Auto) Eos # (Auto) Baso # (Auto) POC Glucose 99 86 99 Hemoglobin A1c Calcium Stl Aeromonas (PCR) Stl C. cayetanensis PCR Stool Rotavirus (PCR) Stl Adenov F 40/41 PCR Stool Astrovirus (PCR) Stool Campylobacter PCR Stl C.difficile Tox PCR Stool Cryptosporidium PCR Stl E.coli Shiga Tox PCR Stool E coli O157 PCR Stl Enterotoxigenic E PCR Stool EPEC (PCR) Stool EAEC (PCR) Stl E. histolytica PCR Stool Giardia Lamblia PCR Stool Salmonella PCR Stool Sapovirus (PCR) Stl P. shigelloides PCR Stl Shigella/EIEC PCR St Y.enterocolitica PCR Stool Vibrio (PCR) Stl Vibrio cholerae PCR Stl Norovirus GI/GII PCR 10/18/17 10/18/17 07:15 05:30 WBC RBC Hgb Hct MCV MCH MCHC RDW Plt Count MPV Neut % (Auto) Lymph % (Auto) [place] % (Auto) Eos % (Auto) Baso % (Auto) Neut # (Auto) Lymph # (Auto) [place] # (Auto) Eos # (Auto) Baso # (Auto) POC Glucose Hemoglobin A1c 5.7 Calcium 8.9 D Stl Aeromonas (PCR) Stl C. cayetanensis PCR Stool Rotavirus (PCR) Stl Adenov F 40/41 PCR Stool Astrovirus (PCR) Stool Campylobacter PCR Stl C.difficile Tox PCR Stool Cryptosporidium PCR Stl E.coli Shiga Tox PCR Stool E coli O157 PCR Stl Enterotoxigenic E PCR Stool EPEC (PCR) Stool EAEC (PCR) Stl E. histolytica PCR Stool Giardia Lamblia PCR Stool Salmonella PCR Stool Sapovirus (PCR) Stl P. shigelloides PCR Stl Shigella/EIEC PCR St Y.enterocolitica PCR Stool Vibrio (PCR) Stl Vibrio cholerae PCR Stl Norovirus GI/GII PCR DS: Diagnosis - Discharge Diagnosis (1) Colitis Status: Acute (2) UTI (urinary tract infection) Status: Acute (3) Hyperglycemia Status: Acute Discharge Plan - Patient Discharge Instructions ACTIVITY: Continue current activity DIET: continue same diet Patient Instructions: Low-Fiber/Low-Residue Diet - Follow up Plan Follow up with: Vin Quinonez MD [Staff Physician] - Baldo Cuellar MD [Staff Physician] - 10/25/17 Disposition: Home, Self-Care Prescriptions/Medication Reconciliation: New metroNIDAZOLE [metroNIDAZOLE 500mg Tablet] 500 mg PO Q8 #21 tab Ondansetron HCl [Ondansetron 4mg Tab] 4 mg PO Q6HP PRN #30 tab PRN Reason: Nausea levoFLOXacin [Levaquin 750mg tablet] 750 mg PO DAILY #7 tab
[2017-10-19 07:03] LABS: Albumin Level 2.9 gm/dL (3.4-5.0); Bilirubin,Direct 0.1 mg/dL (0.0-0.2); Bilirubin,Indirect 0.3 mg/dL (0.0-0.9); Bilirubin,Total 0.4 mg/dL (0.2-1.0); Total Protein,Serum 6.7 gm/dL (6.4-8.2)
[2017-10-19 07:39] VITALS: BP 111/68
== END 2017-10-19 09:33 | disposition home or self-care (01) ==
LOC: ER 12:27 → 2ND 12:27
PROVIDERS: ADMIT Emergency Medicine; ATTEND Family Medicine

== ENCOUNTER → 2017-11-01 09:40 | Outpatient (POV) | payer MEDICARE, SELFPAY | PROVIDERS: Visit Provider Nurse Practitioner Acute Care | DX: Z00.00 Encounter for general adult medical examination without abnormal findings (principal) ==

== ENCOUNTER 2018-04-23 14:39 | Observation (INO) ==
[2018-04-23 15:53] LABS: Basophils % 0.2 % (0.1-2.0); Eosinophils # 0.1 K/mm3 (0.0-0.4); Eosinophils % 1.9 % (0.1-12.0); Hematocrit 36.4 % (37.0-47.0); Hemoglobin 11.5 g/dL (12.2-16.2); Lymphocytes % 13.8 % (10-50); Mean Corpuscular HGB Conc 31.5 g/dL (31.8-35.4); Mean Corpuscular Hemoglobin 27.1 pg (27.0-31.2); Mean Platelet Volume 7.5 fl (7.4-10.4); Monocytes # 0.5 K/mm3 (0.1-1.0); Monocytes % 6.8 % (1.7-9.3); Neutrophils # 5.6 K/mm3 (1.8-7.8); Neutrophils % 77.3 % (37.0-80.0); Platelet Count 260 K/mm3 (142-424); Red Blood Count 4.24 M/mm3 (4.20-5.40); Red Cell Distribution Width 14.7 % (11.5-17.5); White Blood Count 7.2 K/mm3 (4.8-10.8)
[2018-04-23 15:55] LABS: Microscopic, Urine URINE MICROSCOPIC (MICROSCOPIC)
[2018-04-23 16:00] LABS: Appearance,Urine CLEAR (Clear); Bilirubin,Urine Negative (Negative); Blood, Urine Negative (Negative); Color,Urine YELLOW (Yellow); Glucose,Urine (UA) Negative (Negative); Ketones,Urine Negative (Negative); Leukocyte Esterase,Urine Negative (Negative); Protein,Urine Negative (Negative); Specific Gravity, Urine <= 1.005 (1.005-1.030); Urobilinogen,Urine 0.2 EU/dl (0.2)
--- NOTE | 2018-04-23 16:06 | Emergency Department Note ---
ED Disposition Clinical Impression: Weakness, Sinus tachycardia Colon cancer Qualifiers: Colon location: unspecified part of colon Qualified Code(s): C18.9 - Malignant neoplasm of colon, unspecified Disposition: Admitted as Observation Condition on Discharge: Good Referrals: Provider,Referral, [Primary Care Provider] - - Critical Care Critical Care Time: No Attestation: On 04/23/18, the high probability of a clinically significant, sudden or life threatening deterioration of the following system(s) required my full and direct attention, intervention and personal management. The time I documented below is in addition to time spent performing reported procedures but includes the following listed in this critical care notation. Medical Decision Making - Medical Records Medical records reviewed: Yes: I reviewed the patient's medical records. - Win Inquiry Pt receiving controlled substance: No Vital Signs: 04/23/18 14:55 04/23/18 15:10 04/23/18 15:34 Temperature 97.9 F Temperature Source Oral Pulse Rate [Left Radial] 130 H 131 H Pulse Rate [Orthostatic Lying Right Radial] 122 H Pulse Rate [Orthostatic Standing Right Radial] 128 H Respiratory Rate 18 20 Blood Pressure [Orthostatic Lying Right Arm] 152/90 H Blood Pressure [Orthostatic Standing Right Arm] 162/96 H Blood Pressure [Right Arm] 180/100 H 161/107 H Blood Pressure Mean [Right Arm] 126 125 Blood Pressure Source [Right Arm] Automatic Cuff Automatic Cuff Blood Pressure Position [Right Arm] Sitting Sitting 02 Sat by Pulse Oximetry 98 97 Oxygen Delivery Method Room Air Room Air 04/23/18 16:00 04/23/18 16:30 04/23/18 16:59 Temperature Temperature Source Pulse Rate [Left Radial] 112 H 110 H 110 H Pulse Rate [Orthostatic Lying Right Radial] Pulse Rate [Orthostatic Standing Right Radial] Respiratory Rate 20 18 20 Blood Pressure [Orthostatic Lying Right Arm] Blood Pressure [Orthostatic Standing Right Arm] Blood Pressure [Right Arm] 173/89 H 180/97 H 180/101 H Blood Pressure Mean [Right Arm] 117 124 127 Blood Pressure Source [Right Arm] Automatic Cuff Automatic Cuff Automatic Cuff Blood Pressure Position [Right Arm] Sitting Sitting Sitting 02 Sat by Pulse Oximetry 98 99 99 Oxygen Delivery Method Room Air Room Air Room Air - Lab Data Lab results reviewed: Yes: I reviewed the patient's lab results. Lab Results 04/23/18 15:00: Urine Color Yellow, Urine Appearance Clear, Urine pH 7.0, Ur Specific [place] <= 1.005, Urine Protein Negative, Urine Glucose (UA) Negative, Urine Ketones Negative, Urine Blood Negative, Urine Nitrate Negative, Urine Bilirubin Negative, Urine Urobilinogen 0.2, Ur Leukocyte Esterase Negative, Urine WBC 3-5, Ur Squamous Epith Cells 5-10, Urine Bacteria 2+ 04/23/18 15:45: WBC 7.2, RBC 4.24, Hgb 11.5 L, Hct 36.4 L, MCV 86.0, MCH 27.1, MCHC 31.5 L, RDW 14.7, Plt Count 260, MPV 7.5, Neut % (Auto) 77.3, Lymph % (Auto) 13.8, White % (Auto) 6.8, Eos % (Auto) 1.9, Baso % (Auto) 0.2, Neut # (Auto) 5.6, Lymph # (Auto) 1.0, White # (Auto) 0.5, Eos # (Auto) 0.1, Baso # (Auto) 0.0 04/23/18 15:45: Sodium 138, Potassium 4.0, Chloride 99, Carbon Dioxide 30, Anion Gap 13.0, BUN 16, Creatinine 0.72, Estimated Creat Clear 53, Estimated GFR 79, Est GFR ( Amer) 95, Glucose 165 H, Calcium 9.5, Total Bilirubin 0.3, AST 8 L, ALT 20, Alkaline Phosphatase 129 H, Troponin I < 0.02, Total Protein 7.9, Albumin 3.4, Globulin 4.5 H, Albumin/Globulin Ratio 0.8 L Result diagrams: 04/23/18 15:45 04/23/18 15:45 Orders (Tests/Meds): ORDERS Category Date Time Status Urinalysis and Microscopic Stat Lab 04/23/18 15:00 Ordered Urine Culture Stat Micro 04/23/18 15:00 Received - Radiology Data #1 Image(s): Chest Image Reviewed: Yes I reviewed the patient's radiology image Preliminary Findings: Normal/NAD - CT Data CT Scan: Head, Abdomen, Pelvis Time Received: 17:[address] Reviewed: Yes: I have viewed the radiologist's interpretation Preliminary Findings: Normal/NAD - ECG Data Tracing #1 Arrhythmias present: sinus tach Ischemic changes: non-specific ST-T wave changes Weakness HPI - General Chief complaint: Weakness Stated complaint: weakness Time Seen by Provider: 04/23/18 15:05 Mode of Arrival: Ambulatory Source of Information: Patient, Medical Record Limitations: No Limitations Description of Symptoms (Recalled from ER Triage Doc. by RN): to ed per pvt car with c/o generalized weakness and intermittent abd pain x 2-3 days hx of abd surgery in dec for "colon cancer" pt is not taking chemo or radiation. denies any fever, nausea, vomiting, diarrhea - History of Present Illness HPI Narrative: pt with weakness over the last few days w/o fever or vomiting or diarrhea - no chest pain or dyspnea - pt with hx of colon cancer s/p surg - no trauma - feels generalized weakness - no focal changes MD Complaint: generalized weakness Onset (ago): day(s) Duration: constant Location: generalized Migration: none Severity: moderate Associated symptoms: denies other symptoms - Related Data Home Medications Medication Instructions Recorded Confirmed No Known Home Medications 12/02/17 04/23/18 Allergies Allergy/AdvReac Type Severity Reaction Status Date / Time No Known Allergies Allergy Verified 12/02/17 09:28 [facility] History I have reviewed the patient's past medical history: Yes Medical History: Denies:: Diabetes Mellitus Type 1, Diabetes Mellitus Type 2, Internal Pacemaker, Lung Disease, Seizures Other Surgeries: No: Pacemaker - Social History Smoking Status: Never smoker Alcohol Intake: never Occupational Status: retired Housing: apartment - Psychiatric History Expresses thoughts of harming self/others: None Suicide Plan Description: No Plan Family Hx:: Coronary Artery Disease, Heart Attack, Hyperlipidemia, Hypertension ROS Obtained: Yes All systems reviewed & no additional complaints - Constitutional Constitutional: Denies fever(s), Reports weakness - Eyes Eyes: Denies change in vision - ENT Ears, Nose, Mouth, and Throat: Denies sore throat - Cardiovascular Cardiovascular: Denies chest pain, Denies dyspnea - Respiratory Respiratory: No cough - Gastrointestinal Gastrointestingal: Reports: as per HPI, abdominal pain. Denies: diarrhea, black, tarry stools, nausea, vomiting - Genitourinary Female Genitourinary: Denies dysuria, Denies hematuria - Musculoskeletal Musculoskeletal: Denies joint swelling - Integumentary/Breasts Skin/Breast: Denies rash - Neurologic Neurologic: Denies confusion, Denies headache(s), Denies numbness, Denies sei zure-like activity Physical Exam - General General appearance: alert - Head Head exam: normocephalic - Eye Eye exam: Present: PERRL, EOMI. Absent: scleral icterus - ENT ENT exam: Present: mucous membranes dry - Neck Neck exam: Present: trachea midline - Respiratory Respiratory exam: Present: normal lung sounds bilaterally - Cardiovascular Cardiovascular exam: Present: regular rate, systolic murmur, +S4 - Abdominal Exam Abdominal exam: Present: soft. Absent: tenderness - Extremities Exam Extremities exam: Present: full ROM - Neurological Exam Neurological exam: Present: alert, oriented X3, CN II-XII intact - Psychiatric Psychiatric exam: Present: normal affect - Skin Skin exam: Absent: rash
[2018-04-23 16:07] LABS: Alanine Aminotransferase 20 U/L (12-78); Albumin Level 3.4 gm/dL (3.4-5.0); Albumin/Globulin Ratio 0.8 (1.1-1.8); Alkaline Phosphatase 129 U/L (46-116); Aspartate Amino Transferase 8 U/L (15-37); Bilirubin,Total 0.3 mg/dL (0.2-1.0); Blood Urea Nitrogen 16 mg/dL (7-18); Calcium 9.5 mg/dL (8.5-10.1); Carbon Dioxide 30 mmol/L (21.0-32.0); Chloride 99 mmol/L (98-107); Globulin 4.5 gm/dl (1.3-3.2); Sodium 138 mmol/L (136-145); Total Protein,Serum 7.9 gm/dL (6.4-8.2)
[2018-04-23 16:13] LABS: Bacteria,Urine 2+ /lpf
[2018-04-23 16:16] LABS: Glucose 165 mg/dL (74-106)
[2018-04-23 18:43] LABS: T4 (Thyroxine) 8.8 ug/dl (4.7-13.3); Thyroid Stimulating Hormone 1.56 uIU/ml (0.358-3.740)
[2018-04-24 06:27] LABS: Basophils % 0.5 % (0.1-2.0); Eosinophils # 0.2 K/mm3 (0.0-0.4); Eosinophils % 2.7 % (0.1-12.0); Hematocrit 30.4 % (37.0-47.0); Lymphocytes # 1.6 K/mm3 (0.7-4.5); Lymphocytes % 26.7 % (10-50); Mean Corpuscular HGB Conc 31.5 g/dL (31.8-35.4); Mean Corpuscular Hemoglobin 27.1 pg (27.0-31.2); Mean Platelet Volume 7.2 fl (7.4-10.4); Monocytes # 0.4 K/mm3 (0.1-1.0); Monocytes % 6.7 % (1.7-9.3); Neutrophils # 3.7 K/mm3 (1.8-7.8); Neutrophils % 63.3 % (37.0-80.0); Platelet Count 216 K/mm3 (142-424); Red Blood Count 3.54 M/mm3 (4.20-5.40); Red Cell Distribution Width 14.8 % (11.5-17.5); White Blood Count 5.8 K/mm3 (4.8-10.8)
[2018-04-24 06:30] LABS: Hemoglobin 9.6 g/dL (12.2-16.2)
[2018-04-24 06:48] LABS: Anion Gap 11.6 mEq/L (5-15); Calcium 8.7 mg/dL (8.5-10.1); Potassium 3.6 mmoL/L (3.5-5.1)
--- NOTE | 2018-04-24 07:22 | Discharge Summary ---
General - General Admission date:: 04/23/18 Discharge date: 04/24/18 HPI HPI: 77-year-old female with history of colon cancer status post left hemicolectomy in summer of this year presented to the emergency department with malaise and weakness that had developed over the preceding 3 days with some vague abdominal pain, poor p.o. intake. Patient tells me this morning that she believes she did simply been a little more active than she was used to. She recently went on a long trip that involved lots of walking and believes she may simply have exhausted herself. Workup in the emergency department was unrevealing except for mild tachycardia. Patient was admitted for observation overnight with serial troponins ordered. Ruled out for [place]. Patient has received fluids since admission and this morning states she feels well and back at baseline. She is noted to have elevated blood pressure and while the patient is supposed to be taking amlodipine 10 mg daily she tells me she stopped this medication because it caused spasms in her legs. Hospital Course Hospital Course: Patient was admitted on IV fluids. She had no problems overnight. The next morning she felt better and had return of appetite. Diet was ordered. There were no significant abnormalities on physical exam patient was given amlodipine 5 mg. Patient was discharged home Objective Vital signs: Temp Pulse Resp BP Pulse Ox 98.3 F 80 18 137/77 97 04/24/18 03:59 04/24/18 04:00 04/24/18 03:59 04/24/18 03:59 04/24/18 03:59 no acute distress - *Routine HEENT Exam Head: Present: atraumatic Eye: Present: EOMI, PERRL ENT: Present: mucous membranes moist - *Routine Neck Exam Present: supple, full ROM - *Routine Respiratory Exam Present: CTA bilaterally - *Routine Cardiovascular Exam Present: RRR, Normal S1, Normal S2 - *Routine Abdominal Exam Present: soft, normoactive bowel sounds, surgical scars. Absent: tenderness, distended, rebound - *Routine Extremities Exam Present: full ROM Results Labs on day of discharge: Labs from last 24 hours 04/24/18 04/24/18 04/23/18 06:05 06:05 23:44 WBC 5.8 RBC 3.54 L Hgb 9.6 L D Hct 30.4 L MCV 86.0 MCH 27.1 MCHC 31.5 L RDW 14.8 Plt Count 216 MPV 7.2 L Neut % (Auto) 63.3 Lymph % (Auto) 26.7 [place] % (Auto) 6.7 Eos % (Auto) 2.7 Baso % (Auto) 0.5 Neut # (Auto) 3.7 Lymph # (Auto) 1.6 [place] # (Auto) 0.4 Eos # (Auto) 0.2 Baso # (Auto) 0.0 Sodium 141 Potassium 3.6 Chloride 105 Carbon Dioxide 28 Anion Gap 11.6 BUN 11 D Creatinine 0.58 Estimated Creat Clear 54 Estimated GFR 101 Est GFR ( Amer) 122 D Glucose 99 D Calcium 8.7 Magnesium 1.7 Total Bilirubin AST ALT Alkaline Phosphatase Troponin I < 0.02 Total Protein Albumin Globulin Albumin/Globulin Ratio TSH Thyroxine (T4) Urine Color Urine Appearance Urine pH Ur Specific [place] Urine Protein Urine Glucose (UA) Urine Ketones Urine Blood Urine Nitrate Urine Bilirubin Urine Urobilinogen Ur Leukocyte Esterase Urine WBC Ur Squamous Epith Cells Urine Bacteria 04/23/18 04/23/18 04/23/18 19:30 15:45 15:45 WBC RBC Hgb Hct MCV MCH MCHC RDW Plt Count MPV Neut % (Auto) Lymph % (Auto) [place] % (Auto) Eos % (Auto) Baso % (Auto) Neut # (Auto) Lymph # (Auto) [place] # (Auto) Eos # (Auto) Baso # (Auto) Sodium 138 Potassium 4.0 Chloride 99 Carbon Dioxide 30 Anion Gap 13.0 BUN 16 Creatinine 0.72 Estimated Creat Clear 53 Estimated GFR 79 Est GFR ( Amer) 95 Glucose 165 H Calcium 9.5 Magnesium Total Bilirubin 0.3 AST 8 L ALT 20 Alkaline Phosphatase 129 H Troponin I < 0.02 < 0.02 Total Protein 7.9 Albumin 3.4 Globulin 4.5 H Albumin/Globulin Ratio 0.8 L TSH 1.56 D Thyroxine (T4) 8.8 Urine Color Urine Appearance Urine pH Ur Specific [place] Urine Protein Urine Glucose (UA) Urine Ketones Urine Blood Urine Nitrate Urine Bilirubin Urine Urobilinogen Ur Leukocyte Esterase Urine WBC Ur Squamous Epith Cells Urine Bacteria 04/23/18 04/23/18 15:45 15:00 WBC 7.2 RBC 4.24 Hgb 11.5 L Hct 36.4 L MCV 86.0 MCH 27.1 MCHC 31.5 L RDW 14.7 Plt Count 260 MPV 7.5 Neut % (Auto) 77.3 Lymph % (Auto) 13.8 [place] % (Auto) 6.8 Eos % (Auto) 1.9 Baso % (Auto) 0.2 Neut # (Auto) 5.6 Lymph # (Auto) 1.0 [place] # (Auto) 0.5 Eos # (Auto) 0.1 Baso # (Auto) 0.0 Sodium Potassium Chloride Carbon Dioxide Anion Gap BUN Creatinine Estimated Creat Clear Estimated GFR Est GFR ( Amer) Glucose Calcium Magnesium Total Bilirubin AST ALT Alkaline Phosphatase Troponin I Total Protein Albumin Globulin Albumin/Globulin Ratio TSH Thyroxine (T4) Urine Color Yellow Urine Appearance Clear Urine pH 7.0 Ur Specific [place] <= 1.005 Urine Protein Negative Urine Glucose (UA) Negative Urine Ketones Negative Urine Blood Negative Urine Nitrate Negative Urine Bilirubin Negative Urine Urobilinogen 0.2 Ur Leukocyte Esterase Negative Urine WBC 3-5 Ur Squamous Epith Cells 5-10 Urine Bacteria 2+ DS: Diagnosis - Discharge Diagnosis (1) Weakness Status: Acute (2) Mild dehydration Status: Acute (3) Sinus tachycardia Status: Acute (4) Physical exhaustion Status: Acute Discharge Plan - Patient Discharge Instructions ACTIVITY: Continue current activity DIET: continue same diet - Follow up Plan Follow up with: Baldo Cuellar MD [Staff Physician] - (Follow-up on an as-needed basis) Disposition: Home, Self-[facility] Medications: Home Medications Medication Instructions Recorded Confirmed Type Multivitamin with Minerals [One 1 each PO DAILY 04/23/18 04/23/18 History Daily Complete] Prescriptions/Medication Reconciliation: No Action Multivitamin with Minerals [One Daily Complete] 1 each PO DAILY
== END 2018-04-24 08:45 | disposition home or self-care (01) ==
LOC: 2ND 14:39 → ER 14:39 → 2ND 17:52
PROVIDERS: ADMIT Emergency Medicine; ATTEND Family Medicine

== ENCOUNTER 2019-10-25 15:23 | Emergency (ER) | payer MEDICARE, SELFPAY ==
[2019-10-25] VITALS (7 sets, daily range): BP systolic 154–205; BP diastolic 76–121; PULSE 81–109; RESP 15–30; TEMP 36.9–37; O2SAT 96–100; BMI 28.3
--- NOTE | 2019-10-25 15:25 | XR_ITS ---
PROCEDURE: XR CHEST PORTABLE CLINICAL HISTORY: weakness Weakness and dizziness and vertigo COMPARISON: [id number] XR chest portable from 04/23/2018 CT HEAD/BRAIN WO CON from 10/25/2019 FINDINGS: The cardiomediastinal silhouette and pulmonary vascularity are within normal limits. The lungs are clear without infiltrates, suspicious nodules, or pleural effusions. Hypertrophic changes are present at the AC joints. Exostosis noted along the inferior aspect of the right acromion. Old granulomatous disease IMPRESSION: No acute findings. Dictated by: Luis Enrique Garrido MD 10/26/2019 08:32 Electronically signed by Luis Enrique Garrido MD in [place] 10/26/2019 08:32
--- NOTE | 2019-10-25 15:40 | ECG_ITS ---
APPROVED REPORT Exam: Resting ECG HR:107 bpm ECG Measurements Heart Rate 107 AXES IA 198 P 74 QRSd 74 QRS 71 QT 342 T 61 QTc 456 <Conclusion> Sinus tachycardia Nonspecific ST abnormality Abnormal ECG Electronically signed by : Chidi Khan, 10/25/2019 17:31:35
[2019-10-25 15:43] LABS: Basophils % 0.5 % (0.1-2.0); Eosinophils # 0.2 K/mm3 (0.0-0.4); Eosinophils % 3.1 % (0.1-12.0); Hemoglobin 13.5 g/dL (12.2-16.2); Lymphocytes % 30.2 % (10-50); Mean Corpuscular HGB Conc 33.9 g/dL (31.8-35.4); Mean Corpuscular Hemoglobin 31.3 pg (27.0-31.2); Mean Corpuscular Volume 92.4 fl (81-99); Mean Platelet Volume 8.2 fl (7.4-10.4); Monocytes # 0.4 K/mm3 (0.1-1.0); Monocytes % 6.5 % (1.7-9.3); Neutrophils % 59.8 % (37.0-80.0); Platelet Count 200 K/mm3 (142-424); Red Blood Count 4.33 M/mm3 (4.20-5.40); Red Cell Distribution Width 13.9 % (11.5-17.5); White Blood Count 6.6 K/mm3 (4.8-10.8)
--- NOTE | 2019-10-25 15:43 | [facility].EDGENADL ---
ED Disposition Clinical Impression: Peripheral vertigo, unspecified Qualifiers: Laterality: bilateral Qualified Code(s): H81.393 - Other peripheral vertigo, bilateral Disposition: Home, Self-Care Condition on Discharge: Good Instructions: DI for Vertigo Additional Instructions: you have been evaluated for positional dizziness, diagnosed with peripheral vertigo. Please take meclizine as needed. Stay hydrated. Follow-up with your primary care doctor. You may need to see an ears nose and throat specialist. Return to the emergency department for any new or worsening symptoms. Prescriptions: Meclizine HCl [Meclizine 25mg Tab] 25 mg PO QID 3 Days #12 tab Prescription Printed Referrals: Baldo Cuellar MD [Primary Care Provider] - Time of Disposition: 19:29 - Critical Care Critical Care Time: No Attestation: On 10/25/19, the high probability of a clinically significant, sudden or life threatening deterioration of the following system(s) required my full and direct attention, intervention and personal management. The time I documented below is in addition to time spent performing reported procedures but includes the following listed in this critical care notation. Medical Decision Making - Win Inquiry Pt receiving controlled substance: No Vital Signs: 10/25/19 15:24 10/25/19 15:45 10/25/19 16:03 Temperature 98.6 F Temperature Source Oral Pulse Rate [Right Radial] 109 H 98 H 90 Respiratory Rate 30 H Blood Pressure [Right Arm] 197/121 H 205/93 H 180/76 H Blood Pressure Mean [Right Arm] 146 130 110 Blood Pressure Source [Right Arm] Automatic Cuff Automatic Cuff Blood Pressure Position [Right Arm] Sitting Supine Sitting 02 Sat by Pulse Oximetry 96 100 99 Oxygen Delivery Method Room Air Room Air Room Air 10/25/19 17:40 10/25/19 17:52 10/25/19 18:42 Temperature Temperature Source Pulse Rate [Right Radial] 107 H 82 86 Respiratory Rate Blood Pressure [Right Arm] 162/79 H 154/78 H 193/100 H Blood Pressure Mean [Right Arm] 106 103 131 Blood Pressure Source [Right Arm] Automatic Cuff Automatic Cuff Automatic Cuff Blood Pressure Position [Right Arm] Supine Supine Sitting 02 Sat by Pulse Oximetry 96 98 98 Oxygen Delivery Method Room Air Room Air Room Air - Lab Data Lab Results 10/25/19 15:34: WBC 6.6, RBC 4.33, Hgb 13.5, Hct 40.0, MCV 92.4, MCH 31.3 H, MCHC 33.9, RDW 13.9, Plt Count 200, MPV 8.2, Neut % (Auto) 59.8, Lymph % (Auto) 30.2, [place] % (Auto) 6.5, Eos % (Auto) 3.1, Baso % (Auto) 0.5, Neut # (Auto) 4.0, Lymph # (Auto) 2.0, [place] # (Auto) 0.4, Eos # (Auto) 0.2, Baso # (Auto) 0.0 10/25/19 15:34: Sodium 137, Potassium 3.4 L, Chloride 98, Carbon Dioxide 25, Anion Gap 17.4 H, BUN 16, Creatinine 0.70, Estimated Creat Clear 56, Estimated GFR 81, Est GFR ( Amer) 98, Glucose 148 H, Calcium 10.6 H, Total Bilirubin 0.4, AST 26, ALT 19, Alkaline Phosphatase 98, Troponin I < 0.01, Total Protein 8.2, Albumin 4.9, Globulin 3.3 H, Albumin/Globulin Ratio 1.5 10/25/19 15:34: Lipase 79 10/25/19 15:40: Urine Color Yellow, Urine Appearance Clear, Urine pH 7.5, Ur Specific [place] 1.020, Urine Protein Trace, Urine Glucose (UA) Negative, Urine Ketones Negative, Urine Blood Negative, Urine Nitrate Negative, Urine Bilirubin Negative, Urine Urobilinogen 0.2, Ur Leukocyte Esterase Negative, Urine WBC 3-5, Ur Squamous Epith Cells Occasional, Urine Bacteria Trace 10/25/19 15:55: Lactate 3.3 H Result diagrams: 10/25/19 15:34 10/25/19 15:34 Orders (Tests/Meds): ED MEDICATIONS Generic Name Dose Route Start Last Admin Trade Name Freq PRN Reason Stop Dose Admin Sodium Chloride 1,000 mls @ 999 mls/hr 10/25/19 16:45 10/25/19 17:58 Sod Chlor 0.9% 1000ml Bag IV 10/25/19 17:45 999 mls/hr .Q1H1M EZE Administration Sodium Chloride 10 ml 10/25/19 17:11 10/25/19 17:14 Rad-Saline Flush 10ml Syringe IV 11/24/19 17:10 10 ml NEEDED PRN Administration Maintain IV Site Discontinued Medica
[2019-10-25 15:49] LABS: Lipase 79 U/L (23-300)
[2019-10-25 15:51] LABS: Alanine Aminotransferase 19 U/L (12-78); Albumin Level 4.9 g/dl (3.5-5.0); Albumin/Globulin Ratio 1.5 (1.1-1.8); Alkaline Phosphatase 98 U/L (38-126); Anion Gap 17.4 mEq/L (5-15); Aspartate Amino Transferase 26 U/L (14-36); Bilirubin,Total 0.4 mg/dl (0.2-1.3); Blood Urea Nitrogen 16 mg/dl (7-17); Calcium 10.6 mg/dl (8.4-10.2); Carbon Dioxide 25 mmol/L (22.0-30.0); Chloride 98 mmol/L (98-107); Creatinine Clearance Estimated 56 mL/min (50-200); Estimated Glomerular Filt Rate 81 ml/min (>60); GFR (African American) 98 ML/MIN (>60); Globulin 3.3 g/dL (1.3-3.2); Glucose 148 mg/dl (74-100); Potassium 3.4 mmoL/L (3.5-5.1); Sodium 137 mmol/L (136-145); Total Protein,Serum 8.2 g/dl (6.3-8.2)
[2019-10-25 15:51] LABS: Microscopic, Urine URINE MICROSCOPIC (MICROSCOPIC)
[2019-10-25 15:53] LABS: Appearance,Urine CLEAR (Clear); Bilirubin,Urine Negative (Negative); Blood, Urine Negative (Negative); Color,Urine YELLOW (Yellow); Glucose,Urine (UA) Negative (Negative); Ketones,Urine Negative (Negative); Leukocyte Esterase,Urine Negative (Negative); Nitrate,Urine Negative (Negative); PH,Urine 7.5 (5.0-8.5); Protein,Urine TRACE (Negative); Urobilinogen,Urine 0.2 EU/dl (0.2)
--- NOTE | 2019-10-25 15:57 | CT_ITS ---
PROCEDURE: CT ABDOMEN PELVIS W CON CLINICAL INDICATION: acute onset lower abd pain, concern for ischemia COMPARISON: ABDPELWO CT abdomen pelvis wo con from 04/23/2018 TECHNIQUE: IV Contrast: 75ML OPTIRAY 350 Oral Contrast none Axial images obtained with sagittal and coronal reformats. All CT scans at the facility use one or more dose reduction, viz: automated exposure control, ma/kV adjustment per patient size (including targeted exams where dose is matched to indication, i.e. head), or iterative reconstruction technique. FINDINGS: LOWER THORAX: The the ABDOMEN & PELVIS: The liver, spleen, adrenal glands, and pancreas have an unremarkable appearance. Splenules are present along the medial and inferior aspect of the spleen as a normal variant. There are multiple gallstones present with some increased density of the gallbladder which may be due to sludge along with gallstones. Kidneys have an unremarkable appearance. No intestinal obstruction or free air. No evidence appendicitis. There are few scattered small mesenteric lymph nodes which are nonspecific. There is a mild amount of retained colonic feces in the rectosigmoid region. No evidence of diverticulitis. Degenerative changes are present in the spine with grade 1 spondylolisthesis of L4 on L5. Urinary bladder is somewhat distended. There is calcific plaque at the ostium of the celiac and superior mesenteric arteries. Cannot adequately evaluate for the degree of stenosis. CTA may provide further evaluation if clinically desired. IMPRESSION: 1. Cholelithiasis 2. Mildly prominent mesenteric lymph nodes which is nonspecific 3. Atherosclerotic changes at the ostium of the celiac and SMA which may be better evaluated with CTA if ischemia is suspected. Dictated by: Luis Enrique Garrido MD 10/26/2019 09:10 Electronically signed by Luis Enrique Garrido MD in [place] 10/26/2019 09:10
[2019-10-25 16:00] LABS: Bacteria,Urine Trace /lpf; Squamous Epithelial Cell,Urine Occasional #/hpf (0-5)
[2019-10-25 16:04] LABS: Troponin I < 0.01 ng/ml (0.00-0.034)
[2019-10-25 16:13] LABS: Lactic Acid 3.3 mmol/L (0.7-2.1)
--- NOTE | 2019-10-25 16:35 | CT_ITS ---
Procedure: CT ANGIO NECK CLINICAL HISTORY: dizzy Dizziness, vertigo COMPARISON: No exams were available for comparison TECHNIQUE: IV Contrast: 100ml Optiray 350 Axial images obtained with sagittal and coronal reformats. All CT scans at the facility use one or more dose reduction, viz: automated exposure control, ma/kV adjustment per patient size (including targeted exams where dose is matched to indication, i.e. head), or iterative reconstruction technique. FINDINGS: There are mild atheromatous changes of the aortic arch. There is bovine origin of the left common carotid. No common carotid stenosis evident. There is mild amount of calcific plaque in the internal carotid arteries with mild calcific plaque at the ostium of the right internal carotid artery and moderate stenosis of the ostium of the right external carotid artery. Mild plaque with mild stenosis noted at the ostium of the left internal carotid artery with moderate to severe stenosis of the ostium of the left external carotid artery. There is mild stenosis of the proximal aspect of the left subclavian artery. The left vertebral artery is dominant with moderate stenosis, 50-60 percent involving the proximal aspect of the left vertebral artery. The right vertebral artery has an unremarkable appearance although small in nature. 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 No significant carotid stenosis evident. 2. Scattered plaque at the ostium of both carotid arteries 3. Moderate 50-60 % smooth stenosis involving the proximal aspect of the dominant left vertebral artery Dictated by: Luis Enrique Garrido MD 10/26/2019 08:55 Electronically signed by Luis Enrique Garrido MD in [place] 10/26/2019 08:56
--- NOTE | 2019-10-25 16:35 | CT_ITS ---
Procedure: CT ANGIO HEAD CLINICAL HISTORY: dizzy Dizziness, vertigo COMPARISON: CT ANGIO NECK from 10/25/2019 CT HEAD/BRAIN WO CON from 10/25/2019 TECHNIQUE: IV Contrast: 100ml Optiray 350 Axial images obtained with sagittal and coronal reformats. All CT scans at the facility use one or more dose reduction, viz: automated exposure control, ma/kV adjustment per patient size (including targeted exams where dose is matched to indication, i.e. head), or iterative reconstruction technique. FINDINGS: No aneurysm, AVM, or major intracranial occlusive process is evident. There is persistent origin of both posterior cerebral arteries. Left vertebral artery is dominant with hypoplastic right vertebral artery. There are atherosclerotic changes involving the cavernous portion of the ICAs. No evidence of dural sinus thrombosis no enhancing lesions are evident. IMPRESSION: 1. No aneurysm, intracranial arterial occlusion or AVM. Dictated by: Luis Enrique Garrido MD 10/26/2019 09:02 Electronically signed by Luis Enrique Garrido MD in [facility] 10/26/2019 09:02
--- NOTE | 2019-10-25 16:39 | PC.NURSE ---
pt on bedpan, having difficulty passing stool, daughter at bedside assiting in removal of small amt of firm stool. pt tried to get up to go to ct scan per wheelchair and got increasingly dizzy and room spinning. pt taken per stretcher to ct scan.
--- NOTE | 2019-10-25 16:50 | PC.NURSE ---
v/s delayed due to rad.
--- NOTE | 2019-10-25 17:38 | CT_ITS ---
PROCEDURE: CT HEAD/BRAIN WO CON CLINICAL INDICATION: DIZZINESS COMPARISON: HEADWO CT head/brain wo con from 04/23/2018 TECHNIQUE: Axial images obtained. All CT scans at the facility use one or more dose reduction, viz: automated exposure control, ma/kV adjustment per patient size (including targeted exams where dose is matched to indication, i.e. head), or iterative reconstruction technique. FINDINGS: No midline shift, mass effect, intracranial hemorrhage, hydrocephalus, or extra-axial fluid collection is evident. Low-density changes in the periventricular region consistent with ischemic gliotic change from microvascular disease. The calvarium has an unremarkable appearance. No mastoid effusion. Mild mucosal thickening of the ethmoid sinuses. No air-fluid levels are evident. IMPRESSION: No acute intracranial finding Dictated by: Luis Enrique Garrido MD 10/26/2019 08:45 Electronically signed by Luis Enrique Garrido MD in [place] 10/26/2019 08:45
[2019-10-25 19:37] LABS: Troponin I < 0.01 ng/ml (0.00-0.034)
[2019-10-25 19:59] LABS: Reflex Lactic Add Lactic Reflex
== END 2019-10-25 19:58 | disposition home or self-care (01) ==
PROVIDERS: Emergency Provider Emergency Medicine; PCP Family Medicine
DX: H81.393 Other peripheral vertigo, bilateral (principal); Z90.09 Acquired absence of other part of head and neck; Z85.038 Personal history of other malignant neoplasm of large intestine; Z79.899 Other long term (current) drug therapy
CPT/HCPCS: 36415; 70450; 70496; 70498; 71045; 74177; 80053; 81001; 83605; 83690; 84484; 85025; 93005; 96365; 96375; 99284; Q9967

== ENCOUNTER 2025-03-14 11:53 | Observation (INO) | payer MEDICARE, SELFPAY ==
[2025-03-14] VITALS (19 sets, daily range): BP systolic 120–216; BP diastolic 71–136; PULSE 79–105; RESP 15–18; TEMP 36.7–36.8; O2SAT 95–100; BMI 23.1
--- NOTE | 2025-03-14 12:00 | ECG_ITS ---
APPROVED REPORT Exam: Resting ECG HR:104 bpm ECG Measurements Heart Rate 104 AXES VT 160 P 73 QRSd 84 QRS 73 QT 323 T 73 QTc 384 Conclusion SINUS TACHYCARDIA MINIMAL ST DEPRESSION [0.025+ mV ST DEPRESSION] ABNORMAL RHYTHM ECG UNCONFIRMED REPORT Sinus tachycardia. Isolated ST depression in V4. No ST elevation. QTc normal at 384 Electronically signed by : JONATHAN DIETRICH, 03/15/2025 07:45:15
--- OUTSIDE RECORDS SUMMARY | 2025-03-14 12:00 | XMS_ITS | Clinical Summary ---
Author Organization Healthcare Address [address] [place] [address] Care Team Providers Care Sap Data Analyst Name Role Phone Brian Plaza MD Primary Care Provider [phone] Family History Medical History Relation Name Comments Conversions - Other Other No famil y history of cancer Relation Name Status Comments Other Social History Tobacco Use Types Packs/Day Years Used Date Smoking Tobacco: Never Alcohol Use Standard Drinks/Week Comments No 0 (1 standard drink = 0.6 oz pure alcohol) Alcoholic Drinks/day: No history of alcohol use Comments Unknown Sex and Gender Information Value Date Recorded Sex Assigned at Not on file Legal Sex Female 8:53 PM EDT Gender Identity Not on file Sexual Orientation Not on file Plan of Treatment Not on file Care Teams Sap Data Analyst Relationship Specialty Start Date End Date Brian Plaza MD [address] [place] [address] #1 [address]1 [id number] PCP - General 09/27/20
--- NOTE | 2025-03-14 12:14 | XR_ITS ---
FINAL REPORT CLINICAL HISTORY: chest pain COMPARISON: 10/25/2019 FINDINGS: SINGLE VIEW CHEST The heart is normal in size. The mediastinum is unremarkable. There is calcified granuloma at the left base. The lungs are otherwise clear. There is no pneumothorax. IMPRESSION: No acute process. Reviewed, Interpreted and Dictated by aJy Rodriguez MD Transcribed by Kathrine Ross Authenticated and [facility]
[2025-03-14 12:24] LABS: Hematocrit 34.7 % (37.0-47.0); Hemoglobin 11.4 g/dL (12.2-16.2); Immature Granulocytes % 0.4 %; Mean Corpuscular HGB Conc 32.9 g/dL (31.8-35.4); Mean Corpuscular Hemoglobin 29.9 pg (27.0-31.2); Mean Corpuscular Volume 91.1 fl (81-99); Nucleated Red Blood Cells % 0 %; Platelet Count 209 K/mm3 (142-424); Red Blood Count 3.81 M/mm3 (4.20-5.40); Red Cell Distribution Width-SD 46.2 fL; White Blood Count 5.0 K/mm3 (4.8-10.8)
--- NOTE | 2025-03-14 12:29 | ED_ITS ---
<Statement entered by Sebastian Urrutia MD - 03/14/25 20:15> I was consulted by the SOO, and we discussed the complexity of the problems being addressed. I approve the treatment and management plan for this patient's care in the emergency department, thus performing a substantive portion of the medical decision making. Sebastian Urrutia MD Discharge Plan Disposition Patient Disposition: Admitted Prescriptions Prescriptions: No Action multivitamin with minerals [One Daily Complete] 1 EACH Tablet 1 ea PO DAILY amlodipine 5 MG Tablet 5 mg PO DAILY Qty: 30 3RF meclizine 25 MG tablet,chewable 25 mg PO QID 3 Days Qty: 12 0RF Rx Instructions: as needed for vertigo Print Language Print Language: Turkmen Discharge ED Provider: Sebastian Urrutia General Adult HPI <David Isabelle ([facility]), STOCK [employer]ER - Last Filed: 03/14/25 16:47> General Chief complaint: Chest Pain Stated complaint: Chest Pain Time Seen by Provider: 03/14/25 12:14 Mode of Arrival: EMS Source of Information: Patient and EMS Description of Symptoms (Recalled from ER Triage Doc. by RN): EMS was called out for pt having chest pain. EMS gave the pt Aspirin enroute. pt reports that the chest pain has now resolved. pt states that she has had a similar episode like today around 4 weeks ago when she started having chest pain and shortness of breath. pt reports having joint pain, dizziness, and weakness for the past week. History of Present Illness HPI narrative: 84-year-old female presents for chest pain. Patient states this morning around 7 AM while eating Cheerios she began to have tightness in the chest and squeezing that was not let up. Patient states she had a similar episode about 4 weeks ago but did not go to the doctor or get evaluated. Patient states chest pain is resolved at this time but is tender to palpate chest. Patient states she has noticed pain and nausea after meals. Related Data Home Medications ?Medication ?Instructions ?Recorded ?Confirmed multivitamin with minerals (One 1 ea PO DAILY Suppleme nt 04/23/18 04/23/18 Daily Complete tablet) Previous Rx's ?Medication ?Instructions ?Recorded amlodipine 5 mg tablet 5 mg PO DAILY ##30 04/24/18 meclizine 25 mg chewable tablet 25 mg PO QID 3 days #1 2 tabs 10/25/19 Allergies Allergy/AdvReac Type Severity Reaction Status Date / Time No Known Allergies Allergy Verified 12/02/17 09:28 PFS <[facility] [employer] - Last Filed: 03/14/25 16:47> PFS Disclaimer: The information contained in this section may have been updated after the patient was seen, as this information can be updated by other users. Social History , STOCK [employer]ER) Smoking Status: Never smoker second hand exposure: No alcohol intake: never current occupational status: other Travel in the last 8 weeks?: None household members: other housing: other current occupational exposures/hazards: No caffeine: No Have you lived/traveled outside [place] in past 30 days?: No Contact w/someone who lives/traveled outside US past 30 days?: No Exposure to someone with infectious disease in past 14 days?: No Do you have a fever (greater than 100.4 F or 38 C)?: No Have you tested positive for COVID-19?: No Exposed to someone with COVID-19 in past 14 days?: No Do you have a sore throat?: No Do you have a cough?: No Do you have any weakness?: No Do you have any diarrhea?: No Are you experiencing any unusual bleeding?: No Do you have any muscle aches/pain?: No Do you have any abdominal pain?: No Are you experiencing loss of taste or smell?: No Other Medical History Have you received the Flu Vaccine for this season: No Have you received the Pneumonia Vaccine: No <[facility] STOCK [employer] - Last Filed: 03/14/25 16:47> ROS Obtained: Yes Systems reviewed as appropriate & no additional complaints except as documented Constitutional Constitutional: Reports system reviewed and no additional complaints, except as documented, Reports as per HPI, Reports body ache and Reports weakness Cardiovascular Cardiovascular: Reports system reviewed and no additional complaints, except as documented, Reports as per HPI, Reports chest pain and Reports dyspnea on exertion Respiratory Respiratory: Reports system reviewed and no additional complaints, except as documented, Reports as per HPI and Reports dyspnea on exertion Neurologic Neurologic: Reports system reviewed and no additional complaints, except as documented, Reports as per HPI and Reports weakness Physical Exam <David Walton ([facility]), STOCK DEALER - Last Filed: 03/14/25 16:47> General General appearance: alert and in no apparent distress Head Head exam: atraumatic Eye Eye exam: Present normal appearance ENT ENT exam: Present normal exam Chest Chest inspection: Present normal inspection and tenderness (Mid chest) Respiratory Respiratory exam: Present normal lung sounds bilaterally Cardiovascular Cardiovascular exam: Present regular rate and normal rhythm Abdominal Exam Abdominal exam: Present soft, tenderness and normal bowel sounds Abdominal tenderness: Present RUQ and moderate Neurological Exam Neurological exam: Present alert, oriented X3 and CN II-XII intact Skin Skin exam: Present warm and intact Medical Decision Making <David Walton ([facility]), STOCK DEALER - Last Filed: 03/14/25 16:47> Medical Records Medical records reviewed: Yes I reviewed the patient's medical records. Screening: Per USPSTF and CDC recommendations, given the prevalence of disease in our region, it is our hospital?s policy to screen for HIV and viral Hepatitis for all patients aged 18 and over and those with ongoing risk factors. Win Inquiry Pt receiving controlled substance: No Win was queried for this patient: No Vital Signs: 03/14/25 11:58 03/14/25 11:58 03/14/25 12:03 Temperature 98.1 F 98.1 F Temperature Source Oral Oral Pulse Rate 103 H 101 H Pulse Rate [Right] 103 H Respiratory Rate 18 18 Blood Pressure 187/71 H 187/71 H Blood Pressure [Right Arm] 187/71 H Blood Pressure Mean Blood Pressure Mean [Right Arm] 109 Blood Pressure Source Automatic Cuff Blood Pressure Source [Right Arm] Automatic Cuff Blood Pressure Position Supine Blood Pressure Position [Right Arm] Supine 02 Sat by Pulse Oximetry 99 99 100 Oxygen Delivery Method Room Air Room Air Room Air 03/14/25 12:14 03/14/25 12:15 03/14/25 12:17 Temperature Temperature Source Pulse Rate 105 H 104 H Pulse Rate [Right] Respiratory Rate Blood Pressure 183/89 H Blood Pressure [Right Arm] Blood Pressure Mean 120 Blood Pressure Mean [Right Arm] Blood Pressure Source Blood Pressure Source [Right Arm] Blood Pressure Position Blood Pressure Position [Right Arm] 02 Sat by Pulse Oximetry 99 99 Oxygen Delivery Method Room Air Room Air 03/14/25 12:30 03/14/25 13:33 03/14/25 13:45 Temperature Temperature Source Pulse Rate 101 H 93 H Pulse Rate [Right] Respiratory Rate Blood Pressure 149/85 H 216/123 H 194/77 H Blood Pressure [Right Arm] Blood Pressure Mean 129 116 Blood Pressure Mean [Right Arm] Blood Pressure Source Blood Pressure Source [Right Arm] Blood Pressure Position Blood Pressure Position [Right Arm] 02 Sat by Pulse Oximetry 95 97 98 Oxygen Delivery Method Room Air 03/14/25 14:00 03/14/25 14:16 03/14/25 14:45 Temperature Temperature Source Pulse Rate 99 H 98 H 96 H Pulse Rate [Right] Respiratory Rate 15 Blood Pressure 200/96 H 168/74 H 157/94 H Blood Pressure [Right Arm] Blood Pressure Mean 130 115 Blood Pressure Mean [Right Arm] Blood Pressure Source Blood Pressure Source [Right Arm] Blood Pressure Position Blood Pressure Position [Right Arm] 02 Sat by Pulse Oximetry 97 98 98 Oxygen Delivery Method Room Air Room Air 03/14/25 15:00 03/14/25 15:15 03/14/25 15:30 Temperature Temperature Source Pulse Rate 96 H 91 H 100 H Pulse Rate [Right] Respiratory Rate 16 Blood Pressure 120/77 158/79 H 199/95 H Blood Pressure [Right Arm] Blood Pressure Mean 105 129 Blood Pressure Mean [Right Arm] Blood Pressure Source Blood Pressure Source [Right Arm] Blood Pressure Position Blood Pressure Position [Right Arm] 02 Sat by Pulse Oximetry 97 95 97 Oxygen Delivery Method Room Air 03/14/25 15:45 03/14/25 16:00 03/14/25 16:15 Temperature Temperature Source Pulse Rate 92 H 79 79 Pulse Rate [Right] Respiratory Rate Blood Pressure 175/82 H 158/136 H 175/86 H Blood Pressure [Right Arm] Blood Pressure Mean 137 142 115 Blood Pressure Mean [Right Arm] Blood Pressure Source Blood Pressure Source [Right Arm] Blood Pressure Position Blood Pressure Position [Right Arm] 02 Sat by Pulse Oximetry 99 99 99 Oxygen Delivery Method Lab Data Lab results reviewed: Yes I reviewed the patient's lab results. Lab Results 03/14/25 12:16: WBC 5.0, RBC 3.81 L, Hgb 11.4 L, Hct 34.7 L, MCV 91.1, MCH 29.9, MCHC 32.9, RDW 13.8, Plt Count 209, MPV 10.3, Neut % (Auto) 67.8, Lymph % (Auto) 20.0, [place] % (Auto) 8.8, Eos % (Auto) 2.4, Baso % (Auto) 0.6, Neut # (Auto) 3.4, Lymph # (Auto) 1.0, [place] # (Auto) 0.4, Eos # (Auto) 0.1, Baso # (Auto) 0.0, D- Dimer 0.84 H, Sodium 135 L, Potassium 3.5, Chloride 98, Carbon Dioxide 28, Anion Gap 12.5, BUN 12, Creatinine 0.70, Estimated Creat Clear 44, Estimated GFR 80, Est GFR ( Amer) 97, Glucose 199 H, Calcium 10.0, Total Bilirubin 0.6, AST 63 H, ALT 35, Alkaline Phosphatase 135 H, Troponin I 0.01, Total Protein 7.9, Albumin 3.6, Globulin 4.3 H, Albumin/Globulin Ratio 0.8 L, HCV Ab BARRY w/Rflx PCR Qn Negative, HIV Ag/Ab Combo Qual Negative 03/14/25 15:24: Troponin I < 0.01 03/14/25 12:16 03/14/25 12:16 Orders (Tests/Meds): ED MEDICATIONS Discontinued Medications Generic Name Dose Route Start Last Admin Trade Name Freq PRN Reason Stop Dose Admin Iopamidol 75 ml 03/14/25 13:21 03/14/25 13:23 Iopamidol-370 (76%);100ml Bottle IV 03/14/25 13:22 75 ml ONCE ONE Administration Nitroglycerin 0.4 mg 03/14/25 14:54 03/14/25 14:59 Nitroglycerin 0.4mg Sl Tablet SL 03/14/25 14:55 0.4 mg ONCE ONE Administration Sodium Chloride 50 ml 03/14/25 13:21 03/14/25 13:23 0.9 % Sodium Chloride 50 Ml Vial IV 03/14/25 13:22 50 ml ONCE ONE Administration Sodium Chloride 10 ml 03/14/25 13:23 03/14/25 13:23 Sodium Chloride 0.9% 10ml Syr (Rad Only) IV 03/14/25 13:24 10 ml ONCE ONE Administration ORDERS Category Date Time Status CT angio chest PE protocol Stat Cat Scan 03/14/25 12:50 Completed Chest XR -- portable [XR chest portable] Stat Exams 03/14/25 12:14 Completed US gallbladder Stat Exams 03/14/25 14:54 Completed CBC w/Auto Diff [Complete Blood Count Auto Diff] Stat Lab 03/14/25 12:16 Completed CMP [Comprehensive Metabolic Panel] Stat Lab 03/14/25 12:16 Completed D-Dimer Stat Lab 03/14/25 12:16 Completed HIV Combo Stat Lab 03/14/25 12:16 Completed Hepatitis C Ab Qual. W/ RFX Stat Lab 03/14/25 12:16 Completed Trop I [Troponin I] Stat Lab 03/14/25 12:16 Completed Troponin I Q3H Lab 03/14/25 15:24 Completed Troponin I Q3H Lab 03/14/25 18:15 Ordered Medical Decision Narrative: In summary patient is a 84-year-old female who presents to the emergency department for evaluation of chest pain, tightness, squeezing. Very little known history per patient she does not go to the doctor. Was diagnosed in 2017 for colon cancer and had a colon resection 2 years ago was placed on medication for hypertension patient states it made her feel funny so she stopped taking it. Patient is hemodynamically stable upon arrival, afebrile. Elevated BP and heart rate.. Differential diagnosis includes pneumonia, CO, muscle pain. Initial workup will be conducted with labs, x-ray, CT, EKG, sublingual nitro. initial inventions include p.o. challenge. Initial workup reviewed by me D- dimer elevated, CT obtained that shows abnormal gallbladder,'s ultrasound gallbladder shows gallstones with gallbladder wall thickening. Upon repeat evaluation nitroglycerin given blood pressure now 120/77. Patient states pains improved, tenderness present. Spoke with Dr. Chou recommend admit, antibiotics, pain control, n.p.o. after midnight. Spoke with hospitalist accepted will be admitted placed on antibiotics, pain control, n.p.o. after midnight for surgery consult in the a.m. <Sebastian Urrutia MD - Last Filed: 03/14/25 13:35> Vital Signs: 03/14/25 11:58 03/14/25 11:58 03/14/25 12:03 Temperature 98.1 F 98.1 F Temperature Source Oral Oral Pulse Rate 103 H 101 H Pulse Rate [Right] 103 H Respiratory Rate 18 18 Blood Pressure 187/71 H 187/71 H Blood Pressure [Right Arm] 187/71 H Blood Pressure Mean Blood Pressure Mean [Right Arm] 109 Blood Pressure Source Automatic Cuff Blood Pressure Source [Right Arm] Automatic Cuff Blood Pressure Position Supine Blood Pressure Position [Right Arm] Supine 02 Sat by Pulse Oximetry 99 99 100 Oxygen Delivery Method Room Air Room Air Room Air 03/14/25 12:14 03/14/25 12:15 03/14/25 12:17 Temperature Temperature Source Pulse Rate 105 H 104 H Pulse Rate [Right] Respiratory Rate Blood Pressure 183/89 H Blood Pressure [Right Arm] Blood Pressure Mean 120 Blood Pressure Mean [Right Arm] Blood Pressure Source Blood Pressure Source [Right Arm] Blood Pressure Position Blood Pressure Position [Right Arm] 02 Sat by Pulse Oximetry 99 99 Oxygen Delivery Method Room Air Room Air 03/14/25 12:30 03/14/25 13:33 03/14/25 13:45 Temperature Temperature Source Pulse Rate 101 H 93 H Pulse Rate [Right] Respiratory Rate Blood Pressure 149/85 H 216/123 H 194/77 H Blood Pressure [Right Arm] Blood Pressure Mean 129 116 Blood Pressure Mean [Right Arm] Blood Pressure Source Blood Pressure Source [Right Arm] Blood Pressure Position Blood Pressure Position [Right Arm] 02 Sat by Pulse Oximetry 95 97 98 Oxygen Delivery Method Room Air 03/14/25 14:00 03/14/25 14:16 03/14/25 14:45 Temperature Temperature Source Pulse Rate 99 H 98 H 96 H Pulse Rate [Right] Respiratory Rate 15 Blood Pressure 200/96 H 168/74 H 157/94 H Blood Pressure [Right Arm] Blood Pressure Mean 130 115 Blood Pressure Mean [Right Arm] Blood Pressure Source Blood Pressure Source [Right Arm] Blood Pressure Position Blood Pressure Position [Right Arm] 02 Sat by Pulse Oximetry 97 98 98 Oxygen Delivery Method Room Air Room Air 03/14/25 15:00 03/14/25 15:15 03/14/25 15:30 Temperature Temperature Source Pulse Rate 96 H 91 H 100 H Pulse Rate [Right] Respiratory Rate 16 Blood Pressure 120/77 158/79 H 199/95 H Blood Pressure [Right Arm] Blood Pressure Mean 105 129 Blood Pressure Mean [Right Arm] Blood Pressure Source Blood Pressure Source [Right Arm] Blood Pressure Position Blood Pressure Position [Right Arm] 02 Sat by Pulse Oximetry 97 95 97 Oxygen Delivery Method Room Air 03/14/25 15:45 03/14/25 16:00 03/14/25 16:15 Temperature Temperature Source Pulse Rate 92 H 79 79 Pulse Rate [Right] Respiratory Rate Blood Pressure 175/82 H 158/136 H 175/86 H Blood Pressure [Right Arm] Blood Pressure Mean 137 142 115 Blood Pressure Mean [Right Arm] Blood Pressure Source Blood Pressure Source [Right Arm] Blood Pressure Position Blood Pressure Position [Right Arm] 02 Sat by Pulse Oximetry 99 99 99 Oxygen Delivery Method Lab Data Lab Results 03/14/25 12:16: WBC 5.0, RBC 3.81 L, Hgb 11.4 L, Hct 34.7 L, MCV 91.1, MCH 29.9, MCHC 32.9, RDW 13.8, Plt Count 209, MPV 10.3, Neut % (Auto) 67.8, Lymph % (Auto) 20.0, [place] % (Auto) 8.8, Eos % (Auto) 2.4, Baso % (Auto) 0.6, Neut # (Auto) 3.4, Lymph # (Auto) 1.0, [place] # (Auto) 0.4, Eos # (Auto) 0.1, Baso # (Auto) 0.0, D- Dimer 0.84 H, Sodium 135 L, Potassium 3.5, Chloride 98, Carbon Dioxide 28, Anion Gap 12.5, BUN 12, Creatinine 0.70, Estimated Creat Clear 44, Estimated GFR 80, Est GFR ( Amer) 97, Glucose 199 H, Calcium 10.0, Total Bilirubin 0.6, AST 63 H, ALT 35, Alkaline Phosphatase 135 H, Troponin I 0.01, Total Protein 7.9, Albumin 3.6, Globulin 4.3 H, Albumin/Globulin Ratio 0.8 L, HCV Ab BARRY w/Rflx PCR Qn Negative, HIV Ag/Ab Combo Qual Negative 03/14/25 15:24: Troponin I < 0.01 Orders (Tests/Meds): ED MEDICATIONS Discontinued Medications Generic Name Dose Route Start Last Admin Trade Name Freq PRN Reason Stop Dose Admin Iopamidol 75 ml 03/14/25 13:21 03/14/25 13:23 Iopamidol-370 (76%);100ml Bottle IV 03/14/25 13:22 75 ml ONCE ONE Administration Nitroglycerin 0.4 mg 03/14/25 14:54 03/14/25 14:59 Nitroglycerin 0.4mg Sl Tablet SL 03/14/25 14:55 0.4 mg ONCE ONE Administration Sodium Chloride 50 ml 03/14/25 13:21 03/14/25 13:23 0.9 % Sodium Chloride 50 Ml Vial IV 03/14/25 13:22 50 ml ONCE ONE Administration Sodium Chloride 10 ml 03/14/25 13:23 03/14/25 13:23 Sodium Chloride 0.9% 10ml Syr (Rad Only) IV 03/14/25 13:24 10 ml ONCE ONE Administration ORDERS Category Date Time Status CT angio chest PE protocol Stat Cat Scan 03/14/25 12:50 Completed Chest XR -- portable [XR chest portable] Stat Exams 03/14/25 12:14 Completed US gallbladder Stat Exams 03/14/25 14:54 Completed CBC w/Auto Diff [Complete Blood Count Auto Diff] Stat Lab 03/14/25 12:16 Completed CMP [Comprehensive Metabolic Panel] Stat Lab 03/14/25 12:16 Completed D-Dimer Stat Lab 03/14/25 12:16 Completed HIV Combo Stat Lab 03/14/25 12:16 Completed Hepatitis C Ab Qual. W/ RFX Stat Lab 03/14/25 12:16 Completed Trop I [Troponin I] Stat Lab 03/14/25 12:16 Completed Troponin I Q3H Lab 03/14/25 15:24 Completed Troponin I Q3H Lab 03/14/25 18:15 Ordered ECG Data Tracing #1: I reviewed this ECG and interpreted as documented below: Sinus tachycardia. No ST elevation or depression. QTc 384 Critical Care <David Walton ([facility]), STOCK DEALER - Last Filed: 03/14/25 16:47> Critical Care Time Critical Care Time: No
[2025-03-14 12:34] LABS: Alanine Aminotransferase 35 U/L (12-78); Albumin Level 3.6 g/dl (3.5-5.0); Albumin/Globulin Ratio 0.8 (1.1-1.8); Alkaline Phosphatase 135 U/L (38-126); Anion Gap 12.5 mEq/L (5-15); Aspartate Amino Transferase 63 U/L (14-36); Bilirubin,Total 0.6 mg/dl (0.2-1.3); Blood Urea Nitrogen 12 mg/dl (7-17); Calcium 10.0 mg/dl (8.4-10.2); Carbon Dioxide 28 mmol/L (22.0-30.0); Chloride 98 mmol/L (98-107); Creatinine Clearance Estimated 44 mL/min (50-200); Creatinine,Serum 0.70 mg/dl (0.52-1.04); Estimated Glomerular Filt Rate 80 ml/min (>60); GFR (African American) 97 ML/MIN (>60); Globulin 4.3 g/dL (1.3-3.2); Glucose 199 mg/dl (74-100); Potassium 3.5 mmoL/L (3.5-5.1); Sodium 135 mmol/L (136-145); Total Protein,Serum 7.9 g/dl (6.3-8.2)
[2025-03-14 12:40] LABS: D-Dimer 0.84 ug/mL (0.0-0.5)
--- NOTE | 2025-03-14 12:50 | CT_ITS ---
FINAL REPORT TECHNIQUE: The patient was injected with IV contrast. Axial images were obtained through the chest in a PE protocol. 3-D reconstruction images were also performed. Individualized dose reduction techniques using automated exposure control or adjustment of the MA and/or KV according to patient's size were employed. CLINICAL HISTORY: CP, shortness of breath, elevated D-dimer COMPARISON: None FINDINGS: Mediastinal vasculature is adequately opacified. No pulmonary artery filling defects are identified to suggest PE. There are dense calcifications in the aortic arch. There is no aortic dissection or aneurysm. No mediastinal mass or adenopathy. The heart size is normal. There is no pericardial or pleural effusion. No suspicious infiltrate or nodule is identified. Calcified granuloma at the left lung base. Limited images of the upper abdomen demonstrate an abnormal appearance of the partially visualized gallbladder with wall thickening and heterogeneous signal in the substance of the gallbladder. There is mild surrounding stranding. Can not exclude acute versus chronic cholecystitis. IMPRESSION: No pulmonary embolus or dissection. Abnormal partially visualized gallbladder, can not exclude acute versus chronic cholecystitis. Reviewed, Interpreted and Dictated by Jay Rodriguez MD Transcribed by Deneen Sarah Authenticated and [facility]
[2025-03-14 12:51] LABS: Troponin I 0.01 ng/ml (0.00-0.034)
[2025-03-14] MEDS: IOPAMIDOL-370 (76%);100ML BOTTLE 75 ML IV (13:23)
[2025-03-14] MEDS: 0.9 % SODIUM CHLORIDE 50 ML VIAL IV (13:23)
[2025-03-14] MEDS: SODIUM CHLORIDE 0.9% 10ML SYR (RAD ONLY) 10 ML IV (13:23)
[2025-03-14 13:31] LABS: Hepatitis C Ab Qual. W/ RFX NEGATIVE (Negative)
--- NOTE | 2025-03-14 14:54 | US_ITS ---
FINAL REPORT CLINICAL HISTORY: abd pain/chest pain FINDINGS: Sonographic images of the right upper quadrant were obtained. The pancreas is partially obscured.The liver has an unremarkable appearance. There are gallstones present with gallbladder wall thickening up to 5 mm. There is no evidence of biliary ductal dilatation.The common duct measures 0.37 mm. Limited images of the right kidney are unremarkable. IMPRESSION: Gallstones with gallbladder wall thickening. Acute cholecystitis not excluded. Reviewed, Interpreted and Dictated by Jay Rodriguez MD Transcribed by Ally Veliz Authenticated and [facility]
[2025-03-14] MEDS: NITROGLYCERIN 0.4MG SL TABLET 0.4 MG SL (14:59)
[2025-03-14 16:34] LABS: Troponin I < 0.01 ng/ml (0.00-0.034)
[2025-03-14] MEDS: PIPERACILLIN/TAZO 4.5 GM in 0.9 % SODIUM CHLORIDE 100 ML IV (18:12)
--- NOTE | 2025-03-14 18:38 | P.HP_ITS ---
History of Present Illness *Admission Date: 03/14/25 *Reason for visit:: Chest pain *History of present illness: Ama Song is a 84-year-old female with no known past medical history (has not been to the doctor in quite a while) who presents with acute on chronic chest, abdominal pains. She states she has been dealing with abdominal pains, mostly postprandial, for many months and has had intermittent chest pains during this course as well. Over the past day, patient states her chest pains have gotten significantly worse especially today at which point she decided to come to the ED. She denies any fever/chills, shortness of breath, nausea/vomiting, abnormal bowel movements, urinary symptoms, eating anything differently, changes in medications. Workup in the ED significant for CTA chest suggesting acute/chronic cholecystitis with RUQ ultrasound showing cholelithiasis with acute cholecystitis. Dr. Gilmore with general surgery was consulted who recommended admission with IV antibiotics and likely cholecystectomy in the morning. Patient agreeable to this. Given these findings, ED provider discussed case with me and I decided to admit patient for acute cholecystitis. [facility] Disclaimer: The information contained in this section may have been updated after the patient was seen, as this information can be updated by other users. Social History , RETURNED ITEM CLERK) Smoking Status: Never smoker second hand exposure: No alcohol intake: never current occupational status: other Travel in the last 8 weeks?: None household members: other housing: other current occupational exposures/hazards: No caffeine: No Have you lived/traveled outside US in past 30 days?: No Contact w/someone who lives/traveled outside US past 30 days?: No Exposure to someone with infectious disease in past 14 days?: No Do you have a fever (greater than 100.4 F or 38 C)?: No Have you tested positive for COVID-19?: No Exposed to someone with COVID-19 in past 14 days?: No Do you have a sore throat?: No Do you have a cough?: No Do you have any weakness?: No Do you have any diarrhea?: No Are you experiencing any unusual bleeding?: No Do you have any muscle aches/pain?: No Do you have any abdominal pain?: No Are you experiencing loss of taste or smell?: No Other Medical History Have you received the Flu Vaccine for this season: No Have you received the Pneumonia Vaccine: No Review of Systems Constitutional Constitutional: Reports weakness *Neurologic Neurologic: Reports system reviewed and no additional complaints, except as documented, Reports as per HPI and Reports weakness Meds Home Medications and Allergies Home Medications ?Medication ?Instructions ?Recorded ?Confirmed ?Type multivitamin with minerals (One 1 ea PO DAILY Suppleme nt 04/23/18 03/14/25 History Daily Complete tablet) acetaminophen 325 mg tablet 325 mg PO QID PRN Pain (Sc shaun 03/14/25 03/14/25 History (Tylenol) Score 4-6) New Prescriptions to Start Prescriptions: Allergies Allergy/AdvReac Type Severity Reaction Status Date / Time No Known Allergies Allergy Verified 12/02/17 09:28 Exam Data for Last 24 hours Vital signs and Labs for Last 24 Hours: Temp Pulse Resp BP Pulse Ox O2 Del Method 98.1 F 79 18 175/86 H 99 Room Air 03/14/25 17:22 03/14/25 17:22 03/14/25 17:22 03/14/25 17:22 03/14/25 16:15 03/14/25 18:10 Laboratory Results - last 24 hr 03/14/25 12:16: WBC 5.0, RBC 3.81 L, Hgb 11.4 L, Hct 34.7 L, MCV 91.1, MCH 29.9, MCHC 32.9, RDW 13.8, Plt Count 209, MPV 10.3, Neut % (Auto) 67.8, Lymph % (Auto) 20.0, [place] % (Auto) 8.8, Eos % (Auto) 2.4, Baso % (Auto) 0.6, Neut # (Auto) 3.4, Lymph # (Auto) 1.0, [place] # (Auto) 0.4, Eos # (Auto) 0.1, Baso # (Auto) 0.0, D- Dimer 0.84 H, Sodium 135 L, Potassium 3.5, Chloride 98, Carbon Dioxide 28, Anion Gap 12.5, BUN 12, Creatinine 0.70, Estimated Creat Clear 44, Estimated GFR 80, Est GFR ( Amer) 97, Glucose 199 H, Calcium 10.0, Total Bilirubin 0.6, AST 63 H, ALT 35, Alkaline Phosphatase 135 H, Troponin I 0.01, Total Protein 7.9, Albumin 3.6, Globulin 4.3 H, Albumin/Globulin Ratio 0.8 L, HCV Ab BARRY w/Rflx PCR Qn Negative, HIV Ag/Ab Combo Qual Negative 03/14/25 15:24: Troponin I < 0.01 I & O for Last 24 hours: Intake & Output 03/11/25 03/12/25 03/13/25 03/14/25 23:59 23:59 23:59 23:59 Intake Total 360 / 360 Balance 360 / 360 Weight 64.864 kg Constitutional Constitutional: no acute distress and chronically ill appearing *Routine HEENT Exam Head: Present normocephalic Eye: Present EOMI and PERRL ENT: Present mucous membranes moist *Routine Neck Exam Neck: Present supple; Absent lymphadenopathy *Routine Respiratory Exam Respiratory: Present CTA bilaterally *Routine Cardiovascular Exam Cardiovascular: Present RRR *Routine Abdominal Exam Abdominal: Present soft, normoactive bowel sounds and tenderness Comments: Moderate tenderness to palpation of the right upper quadrant. *Routine Rectal Exam Rectal:: deferred *Routine Genitalia Exam Genitalia:: deferred *Routine Extremities Exam Extremities: Absent cyanosis, clubbing or edema *Routine Skin Exam Skin: Present warm; Absent rash *Routine Neurological Exam Neurological: Present alert and oriented X3 Assessment and Plan *Assessment and plan (1) Acute cholecystitis: Status: Acute Category: Medical Code(s): K81.0 - Acute cholecystitis Plan Ama Song is a 84-year-old female with no known past medical history (has not been to the doctor in quite a while) who presents with acute on chronic chest, abdominal pains. She states she has been dealing with abdominal pains, mostly postprandial, for many months and has had intermittent chest pains during this course as well. Over the past day, patient states her chest pains have gotten significantly worse especially today at which point she decided to come to the ED. She denies any fever/chills, shortness of breath, nausea/vomiting, abnormal bowel movements, urinary symptoms, eating anything differently, changes in medications. Workup in the ED significant for CTA chest suggesting acute/chronic cholecystitis with RUQ ultrasound showing cholelithiasis with acute cholecystitis. Dr. Gilmore with general surgery was consulted who recommended admission with IV antibiotics and likely cholecystectomy in the morning. Patient agreeable to this. Given these findings, ED provider discussed case with me and I decided to admit patient for acute cholecystitis. #Chest pain #Cholelithiasis #Acute cholecystitis ? Presented with acute on chronic chest, abdominal pains and found to have acute cholecystitis on RUQ ultrasound. ? WBC 5.0, no signs of sepsis. AST slightly elevated to 63, ALP up to 135, ALT normal. Troponins normal, EKG without acute ischemic changes. ? Started Zosyn 4.5 g every 8 hours. ? General Surgery consulted, planning for cholecystectomy in the morning. N.p.o. at midnight. ? Follow-up ECHO in the morning to evaluate chest pain, though likely referral from cholecystitis. Patient is a non-smoker. ? Tylenol, Toradol, [place], morphine as needed for pain control. Patient prefers Tylenol. #Normocytic anemia ? Hemoglobin 11.4, MCV 91. Stable. Full code DVT prophylaxis: IPC's
[2025-03-14 20:15] LABS: Troponin I 0.02 ng/ml (0.00-0.034)
--- NOTE | 2025-03-14 21:27 | PC.NURSE ---
patient c/o diarrhea that just started this shift, requesting medication, notified hospitalist, hospitalist to order diarrhea panel.
[2025-03-14 21:47] LABS: Lipase 77 U/L (23-300)
[2025-03-15] VITALS (21 sets, daily range): BP systolic 135–183; BP diastolic 55–98; PULSE 67–110; RESP 12–18; TEMP 35.3–43; O2SAT 96–100; BMI 25.0
[2025-03-15] MEDS: PIPERACILLIN/TAZO 4.5 GM in 0.9 % SODIUM CHLORIDE 100 ML IV ×3 (01:49→16:23)
[2025-03-15 06:29] LABS: Hematocrit 32.7 % (37.0-47.0); Hemoglobin 10.3 g/dL (12.2-16.2); Immature Granulocytes % 0.2 %; Mean Corpuscular HGB Conc 31.5 g/dL (31.8-35.4); Mean Corpuscular Hemoglobin 29.5 pg (27.0-31.2); Mean Corpuscular Volume 93.7 fl (81-99); Nucleated Red Blood Cells % 0 %; Platelet Count 123 K/mm3 (142-424); Red Blood Count 3.49 M/mm3 (4.20-5.40); Red Cell Distribution Width-SD 48.0 fL; White Blood Count 6.1 K/mm3 (4.8-10.8)
[2025-03-15 06:35] LABS: Albumin Level 2.8 g/dl (3.5-5.0); Chloride 106 mmol/L (98-107); Potassium 3.6 mmoL/L (3.5-5.1); Sodium 134 mmol/L (136-145)
[2025-03-15 06:37] LABS: Alanine Aminotransferase 24 U/L (12-78); Aspartate Amino Transferase 77 U/L (14-36); Blood Urea Nitrogen 14 mg/dl (7-17); Creatinine Clearance Estimated 47 mL/min (50-200); Creatinine,Serum 0.80 mg/dl (0.52-1.04); Estimated Glomerular Filt Rate 69 ml/min (>60); GFR (African American) 83 ML/MIN (>60)
[2025-03-15 06:38] LABS: Albumin/Globulin Ratio 0.8 (1.1-1.8); Alkaline Phosphatase 129 U/L (38-126); Anion Gap 7.6 mEq/L (5-15); Bilirubin,Total 0.8 mg/dl (0.2-1.3); Calcium 8.8 mg/dl (8.4-10.2); Carbon Dioxide 24 mmol/L (22.0-30.0); Globulin 3.7 g/dL (1.3-3.2); Glucose 93 mg/dl (74-100); Magnesium 1.9 mg/dl (1.6-2.3); Total Protein,Serum 6.5 g/dl (6.3-8.2)
--- NOTE | 2025-03-15 06:41 | P.CONS_ITS ---
History of Present Illness *Admission Date: 03/14/25 *Reason for visit:: Cholecystitis *History of present illness: This is an 84-year-old female seen in consultation after evaluation in the emergency department for complaints of chest tightness and upper abdominal pain. Initial cardiac evaluation revealed no definitive abnormality. A chest CT revealed abnormal gallbladder wall thickening. Follow-up ultrasound revealed cholelithiasis and a 5 mm wall. Secondary to these findings and associated significant right upper quadrant tenderness, the patient was admitted to the Hospitalist service and surgical consultation was ordered. Forwarded from admission H&P: Ama Song is a 84-year-old female with no known past medical history (has not been to the doctor in quite a while) who presents with acute on chronic chest, abdominal pains. She states she has been dealing with abdominal pains, mostly postprandial, for many months and has had intermittent chest pains during this course as well. Over the past day, patient states her chest pains have gotten significantly worse especially today at which point she decided to come to the ED. She denies any fever/chills, shortness of breath, nausea/vomiting, abnormal bowel movements, urinary symptoms, eating anything differently, changes in medications. Workup in the ED significant for CTA chest suggesting acute/chronic cholecystitis with RUQ ultrasound showing cholelithiasis with acute cholecystitis. Dr. Gilmore with general surgery was consulted who recommended admission with IV antibiotics and likely cholecystectomy in the morning. Patient agreeable to this. Given these findings, ED provider discussed case with me and I decided to admit patient for acute cholecystitis. [facility] Disclaimer: The information contained in this section may have been updated after the patient was seen, as this information can be updated by other users. 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: No Do you have a cough?: No Do you have any weakness?: No Do you have any diarrhea?: No Are you experiencing any unusual bleeding?: No Do you have any muscle aches/pain?: No Do you have any abdominal pain?: No Are you experiencing loss of taste or smell?: No Review of Systems Review of Systems Review of systems:: pertinent systems reviewed and negative unless documented below Constitutional Constitutional: Reports weakness *Gastrointestinal Gastrointestinal: Reports as per HPI *Neurologic Neurologic: Reports system reviewed and no additional complaints, except as documented, Reports as per HPI and Reports weakness Meds Home Medications and Allergies Home Medications ?Medication ?Instructions ?Recorded ?Confirmed ?Type multivitamin with minerals (One 1 ea PO DAILY Suppleme nt 04/23/18 03/14/25 History Daily Complete tablet) acetaminophen 325 mg tablet 325 mg PO QID PRN Pain (Sc shaun 03/14/25 03/14/25 History (Tylenol) Score 4-6) New Prescriptions to Start Prescriptions: Allergies Allergy/AdvReac Type Severity Reaction Status Date / Time No Known Allergies Allergy Verified 12/02/17 09:28 Exam (Inpt) Vital signs and Labs for Last 24 Hours: Temp Pulse Resp BP Pulse Ox O2 Del Method 97.9 F 110 H 12 138/85 98 Room Air 03/15/25 04:00 03/15/25 05:00 03/15/25 04:00 03/15/25 04:00 03/15/25 04:00 03/15/25 06:37 Laboratory Results - last 24 hr 03/14/25 12:16: WBC 5.0, RBC 3.81 L, Hgb 11.4 L, Hct 34.7 L, MCV 91.1, MCH 29.9, MCHC 32.9, RDW 13.8, Plt Count 209, MPV 10.3, Neut % (Auto) 67.8, Lymph % (Auto) 20.0, [place] % (Auto) 8.8, Eos % (Auto) 2.4, Baso % (Auto) 0.6, Neut # (Auto) 3.4, Lymph # (Auto) 1.0, [place] # (Auto) 0.4, Eos # (Auto) 0.1, Baso # (Auto) 0.0, D- Dimer 0.84 H, Sodium 135 L, Potassium 3.5, Chloride 98, Carbon Dioxide 28, Anion Gap 12.5, BUN 12, Creatinine 0.70, Estimated Creat Clear 44, Estimated GFR 80, Est GFR ( Amer) 97, Glucose 199 H, Calcium 10.0, Total Bilirubin 0.6, AST 63 H, ALT 35, Alkaline Phosphatase 135 H, Troponin I 0.01, Total Protein 7.9, Albumin 3.6, Globulin 4.3 H, Albumin/Globulin Ratio 0.8 L, HCV Ab BARRY w/Rflx PCR Qn Negative, HIV Ag/Ab Combo Qual Negative 03/14/25 15:24: Troponin I < 0.01 03/14/25 19:19: Troponin I 0.02, Lipase 77 03/15/25 05:30: WBC 6.1, RBC 3.49 L, Hgb 10.3 L, Hct 32.7 L, MCV 93.7, MCH 29.5, MCHC 31.5 L, RDW 14.0, Plt Count 123 L D, MPV 12.0 H, Neut % (Auto) 66.1, Lymph % (Auto) 19.6, [place] % (Auto) 10.9 H, Eos % (Auto) 2.5, Baso % (Auto) 0.7, Neut # (Auto) 4.0, Lymph # (Auto) 1.2, [place] # (Auto) 0.7, Eos # (Auto) 0.2, Baso # (Auto) 0.0, Sodium 134 L, Potassium 3.6, Chloride 106, Carbon Dioxide 24, Anion Gap 7.6, BUN 14, Creatinine 0.80, Estimated Creat Clear 47, Estimated GFR 69, Est GFR ( Amer) 83, Glucose 93 D, Calcium 8.8, Magnesium 1.9, Total Bilirubin 0.8, AST 77 H, ALT 24 D, Alkaline Phosphatase 129 H, Total Protein 6.5, Albumin 2.8 L D, Globulin 3.7 H, Albumin/Globulin Ratio 0.8 L I & O for Labs for Last 24 Hours: Intake & Output 03/12/25 03/13/25 03/14/25 03/15/25 11:59 11:59 11:59 11:59 Intake Total 700 / 700 Output Total 0 / 0 Balance 700 / 700 Weight 143 lb 155 lb 4.8 oz Constitutional: no acute distress Respiratory: Absent respiratory distress Cardiac: Present Tachycardia GI: Present soft and tenderness (RUQ); Absent guarding or rebound Rectal (female): Present deferred (female): Present deferred Skin: Absent erythema Neuro: Present alert and awake Results Labs 03/15/25 05:30 03/15/25 05:30 Labs: Laboratory Results - last 24 hr 03/14/25 12:16: WBC 5.0, RBC 3.81 L, Hgb 11.4 L, Hct 34.7 L, MCV 91.1, MCH 29.9, MCHC 32.9, RDW 13.8, Plt Count 209, MPV 10.3, Neut % (Auto) 67.8, Lymph % (Auto) 20.0, [place] % (Auto) 8.8, Eos % (Auto) 2.4, Baso % (Auto) 0.6, Neut # (Auto) 3.4, Lymph # (Auto) 1.0, [place] # (Auto) 0.4, Eos # (Auto) 0.1, Baso # (Auto) 0.0, D- Dimer 0.84 H, Sodium 135 L, Potassium 3.5, Chloride 98, Carbon Dioxide 28, Anion Gap 12.5, BUN 12, Creatinine 0.70, Estimated Creat Clear 44, Estimated GFR 80, Est GFR ( Amer) 97, Glucose 199 H, Calcium 10.0, Total Bilirubin 0.6, AST 63 H, ALT 35, Alkaline Phosphatase 135 H, Troponin I 0.01, Total Protein 7.9, Albumin 3.6, Globulin 4.3 H, Albumin/Globulin Ratio 0.8 L, HCV Ab BARRY w/Rflx PCR Qn Negative, HIV Ag/Ab Combo Qual Negative 03/14/25 15:24: Troponin I < 0.01 03/14/25 19:19: Troponin I 0.02, Lipase 77 03/15/25 05:30: WBC 6.1, RBC 3.49 L, Hgb 10.3 L, Hct 32.7 L, MCV 93.7, MCH 29.5, MCHC 31.5 L, RDW 14.0, Plt Count 123 L D, MPV 12.0 H, Neut % (Auto) 66.1, Lymph % (Auto) 19.6, [place] % (Auto) 10.9 H, Eos % (Auto) 2.5, Baso % (Auto) 0.7, Neut # (Auto) 4.0, Lymph # (Auto) 1.2, [place] # (Auto) 0.7, Eos # (Auto) 0.2, Baso # (Auto) 0.0, Sodium 134 L, Potassium 3.6, Chloride 106, Carbon Dioxide 24, Anion Gap 7.6, BUN 14, Creatinine 0.80, Estimated Creat Clear 47, Estimated GFR 69, Est GFR ( Amer) 83, Glucose 93 D, Calcium 8.8, Magnesium 1.9, Total Bilirubin 0.8, AST 77 H, ALT 24 D, Alkaline Phosphatase 129 H, Total Protein 6.5, Albumin 2.8 L D, Globulin 3.7 H, Albumin/Globulin Ratio 0.[address] scan - chest: report reviewed and image reviewed US - abdomen: report reviewed and image reviewed Assessment and Plan *Assessment and plan (1) Acute calculous cholecystitis: Status: Acute Category: Medical Code(s): K80.00 - Calculus of gallbladder with acute cholecystitis without obstruction Plan: Continue overall management as per primary service. Laparoscopic cholecystectomy planned for later today. I have discussed the risks and benefits including, but not limited to: Bleeding Infection Damage to surrounding tissue Inherent risks of sedation The patient agrees to proceed.
[2025-03-15 10:09] LABS: Hemoglobin A1C 5.1 % (4.0-6.0)
[2025-03-15 12:42] LABS: Cholesterol 196 mg/dl (140-200); HDL Cholesterol 64 mg/dl (40-60); Triglycerides 58 mg/dl (30-150)
--- NOTE | 2025-03-15 12:48 | P.PNANES_ITS ---
[facility] Disclaimer: The information contained in this section may have been updated after the patient was seen, as this information can be updated by other users. Social History Smoking Status: Never smoker second hand exposure: No alcohol intake: never substance use type: unknown current occupational status: other Travel in the last 8 weeks?: None household members: other housing: other current occupational exposures/hazards: No caffeine: No [facility] Anesthesia Checklist Patient Identification Patient Identification: Arm Band and Verbal (Name & ) Structural Data Admitted From: Home Planned Operative Procedure/s: lap isa Consent for Planned Operative Procedure(s) Verified: Yes Verified Documents: Surgical Consent and History and Physical NPO Status Verified Time NPO: 00:00 Additional verifications Anesthesia Reactions: No Airway Assessment Mallampati Score:: Class II Dentition: Poor Dentition Neurological Assessment Level of Consciousness: Awake, Alert and Appropriate Hx Seizures: No Numbness or tingling in extremities: No Anesthesia Plan Anesthesia Risk discussed: Yes Anesthesia Plan: Verified ASA Class: II Anesthesia Type: MAC
[2025-03-15] MEDS: LIDOCAINE 1% 20ML MDV 20 ML (12:52)
[2025-03-15] MEDS: SODIUM CHLORIDE IRRIG SOLUTION 3,000 ML 200 ML IR (12:54)
--- NOTE | 2025-03-15 14:19 | EXP.OP.NOTE ---
Date of procedure: 03/15/25 Pre-op Diagnosis:: Acute calculous cholecystitis Post-op Diagnosis:: Same Procedure performed:: Laparoscopic cholecystectomy Surgeon:: Miguel Gilmore MD Anesthesia: GETA Estimated blood loss (mL): 15 Operative findings:: Severe gallbladder wall thickening Significant serosal weeping Dense adhesions along anterior abdominal wall Stephen-Porter drains (x 2) placed in/anterior to gallbladder fossa Operative note:: After informed consent was obtained, the patient was taken to the operating room and placed in the supine position. General anesthesia was induced and the abdomen was prepped and draped in a sterile fashion. A Veress needle was placed in the left upper quadrant. The abdomen was insufflated. A 5 mm optical trocar was placed on the left flank. Dense adhesions were noted along the anterior abdominal wall. An additional 5 mm trocar was placed in the infraumbilical region at a point of adhesion clearance. A portion of adhesions were taken down via blunt dissection. Under direct visualization, a 12 mm trocar was placed in the subxiphoid position and 2 additional 5 mm trocars were placed in the right upper quadrant. The gallbladder was elevated up and over the liver margin. Severe thickening and serosal weeping noted. The tissue around the cystic duct was carefully dissected. 3 clips were placed proximally and the duct was transected with harmonic gregoria. Harmonic gregoria were then utilized to dissect the gallbladder away from the liver margin with careful attention to the control of the cystic artery (2 additional clips also placed). The gallbladder was placed in a retrieval bag and removed through the subxiphoid trocar site. The right upper quadrant was thoroughly irrigated. No active bleeding or bile leak was noted. 2 #10 flat Stephen-Porter drains were then placed in position and exited through the right upper quadrant trocar sites. The drains were secured with interrupted nylon suture. Fascia at the subxiphoid trocar site was reapproximated utilizing 0 Ethibond. All wounds were irrigated and skin was closed with 4-0 Monocryl in an interrupted mattress fashion to facilitate hemostasis. Dressings were applied. The patient's anesthetic agents were reversed and extubation was completed prior to transfer to recovery in stable condition. Condition: stable Disposition: PACU Specimens:: Gallbladder and contents Complications:: No immediate
--- NOTE | 2025-03-15 14:31 | EXP.ANES.I ---
[facility] Anesthesia Record Part I Anesthesia Record I Intake, IV Amount: 1,100 Hydration: Adequate Estimated blood loss (mL): 15 Urine output (mL): 0 Blood Products used (#): none Blood Pressure: 147/63 SaO2: 100 Pulse Rate: 75 Airway Patency: Patent Respiratory Rate: 18 Temperature: 97.2 F Patient is:: Drowsy and Stable Stable to PACU at:: 14:25
[2025-03-15] MEDS: KETOROLAC 30MG/ML VIAL 30 MG IV (15:12)
--- NOTE | 2025-03-15 17:21 | PC.NURSE ---
Pt is A&Ox4. Pt hypertensive post lap isa. Hospitalist notified. No new orders at this time. Pt temperature rectally upon arriving to the floor 95.6. Per protocol, room temperature turned up and several warm blankets applied to pt. Temperature checked Q15 mins with improvement- see vital signs. Otherwise, vital signs stable tolerating room air. 5 lap sites with gauze and tegaderm c/d/i. [address] with bloody drainage. Pt complains of abdominal pain post-op. PRN pain medication given per MAR with relief. Pt resting comfortably sitting up in the bed with no further needs voiced at this time. Call light within reach. Bed alarm in place.
--- NOTE | 2025-03-15 18:14 | P.PN_ITS ---
Subjective *Date: 03/19/25 *Time: 19:07 Interval history: Patient feeling much better today, tolerating diet without issues. Will continue to monitor overnight, monitor ARIELLA drain output. Exam Data for Last 24 hours Vital signs and Labs for Last 24 Hours: Temp Pulse Resp BP Pulse Ox O2 Del Method 97.7 F 79 16 179/61 H 99 Room Air 03/15/25 16:50 03/15/25 16:50 03/15/25 16:50 03/15/25 16:50 03/15/25 16:50 03/15/25 17:00 Laboratory Results - last 24 hr 03/14/25 19:19: Troponin I 0.02, Lipase 77 03/15/25 05:30: WBC 6.1, RBC 3.49 L, Hgb 10.3 L, Hct 32.7 L, MCV 93.7, MCH 29.5, MCHC 31.5 L, RDW 14.0, Plt Count 123 L D, MPV 12.0 H, Neut % (Auto) 66.1, Lymph % (Auto) 19.6, [place] % (Auto) 10.9 H, Eos % (Auto) 2.5, Baso % (Auto) 0.7, Neut # (Auto) 4.0, Lymph # (Auto) 1.2, [place] # (Auto) 0.7, Eos # (Auto) 0.2, Baso # (Auto) 0.0, Sodium 134 L, Potassium 3.6, Chloride 106, Carbon Dioxide 24, Anion Gap 7.6, BUN 14, Creatinine 0.80, Estimated Creat Clear 47, Estimated GFR 69, Est GFR ( Amer) 83, Glucose 93 D, Hemoglobin A1c 5.1, Calcium 8.8, Magnesium 1.9, Total Bilirubin 0.8, AST 77 H, ALT 24 D, Alkaline Phosphatase 129 H, Total Protein 6.5, Albumin 2.8 L D, Globulin 3.7 H, Albumin/Globulin Ratio 0.8 L, Triglycerides 58, Cholesterol 196, LDL Cholesterol Direct 81.53 L, VLDL Cholesterol 12, HDL Cholesterol 64 H, Cholesterol/HDL Ratio 3.1, TSH Cancelled I & O for Last 24 hours: Intake & Output 03/12/25 03/13/25 03/14/25 03/15/25 23:59 23:59 23:59 23:59 Intake Total 460 / 700 2220 / 2220 Output Total 0 / 0 500 / 500 Balance 460 / 700 1720 / 1720 Weight 64.864 kg 70.443 kg Microbiology Reports for the Last 24 Hours: Microbiology 03/14/25 17:00 Blood Blood Culture - Preliminary NO GROWTH AFTER 24 HOURS 03/14/25 16:45 Blood Blood Culture - Preliminary NO GROWTH AFTER 24 HOURS Constitutional Constitutional: no acute distress *Routine Respiratory Exam Respiratory: Absent respiratory distress *Routine Cardiovascular Exam Cardiovascular: Absent tachycardia *Routine Abdominal Exam Comments: Dressings intact. Minimal Stephen-Porter drainage. Sanguinous drainage at ARIELLA drain sites (mild to moderate) Assessment and Plan *Assessment and plan (1) Acute calculous cholecystitis: Status: Acute Category: Medical Code(s): K80.00 - Calculus of gallbladder with acute cholecystitis without obstruction Plan Ama Song is a 84-year-old female with no known past medical history (has not been to the doctor in quite a while) who presents with acute on chronic chest, abdominal pains. She states she has been dealing with abdominal pains, mostly postprandial, for many months and has had intermittent chest pains during this course as well. Over the past day, patient states her chest pains have gotten significantly worse especially today at which point she decided to come to the ED. She denies any fever/chills, shortness of breath, nausea/vomiting, abnormal bowel movements, urinary symptoms, eating anything differently, changes in medications. Workup in the ED significant for CTA chest suggesting acute /chronic cholecystitis with RUQ ultrasound showing cholelithiasis with acute cholecystitis. Dr. Gilmore with general surgery was consulted who recommended admission with IV antibiotics and likely cholecystectomy in the morning. Patient agreeable to this. Given these findings, ED provider discussed case with me and I decided to admit patient for acute cholecystitis. #Chest pain #Cholelithiasis #Acute cholecystitis ? Presented with acute on chronic chest, abdominal pains and found to have acute cholecystitis on RUQ ultrasound. ? Initial WBC normal, no signs of sepsis. Troponins normal, EKG without acute ischemic changes. ? General Surgery consulted, s/p laparoscopic cholecystomy on 03/15/2025. Stephen-Porter drains (x 2) placed in/anterior to gallbladder fossa, draining slight serosanguineous fluid. ? Patient feels much better today, tolerating p.o. intake without issues. Ambulating independently. ? Continue Zosyn 4.5 g every 8 hours. ? ECHO revealed normal biventricular systolic function without wall motion abnormalities. Chest pain-free after surgery. ? Tylenol, Toradol, [place], morphine as needed for pain control. Patient prefers Tylenol. #Normocytic anemia ? Hemoglobin 11.4, MCV 91. Stable. Full code DVT prophylaxis: IPC's
--- NOTE | 2025-03-15 18:46 | CA_ITS ---
APPROVED REPORT EXAM: Comprehensive 2D, Doppler, and color-flow Echocardiogram Tow Bar Driver: Bianca Hollins CRT Ht: 5 ft 6 in Wt: 143lbs BSA: 1.73 BP: 175/86 mmHg Indications: Chest Pain, cholecystitis 2D Dimensions LA Volume 26.90 mL LA Volume Index 15.10 mL/m2 (M/F) 16-34 M-Mode Dimensions RVDd 2.07 cm (0.9-2.6) LA Diam 3.68 cm (1.9-4.0) LVDd 3.55 cm (3.5-5.7) LVDs 2.50 cm (3.5-5.7) IVSd 1.02 cm (0.6-1.1) PWd 0.61 cm (0.6-1.1) EF (Teich) 57.60% FS 29.60% EDV (Teich) 52.60 mL TAPSE 2.29 (<1.7) ESV (Teich) 22.30 mL LV Diastology E Decel Time 243 (160-240 msec) E/A Ratio 0.70 MED A' 13.40 cm/s LAT A' 12.30 cm/s Aortic Valve AO Peak GR. 5.10 mmHg Mitral Valve MV E Max Mainor. 74.0 (40-130 cm/s) MV A Velocity 106.0 (40-130 cm/s) E/A Ratio 0.70 MV PHT 71.0 ms Tricuspid Valve TR P. Velocity 204.00 cm/s RAP Estimate 10.00 mmHg RVSP 26.60 mmHg Left Ventricle The left ventricle is normal size. Left ventricular systolic function is normal. The left ventricular ejection fraction is within the normal range. There is increased left ventricular wall thickness. There is normal LV segmental wall motion. The left ventricular diastolic function is normal. LVEF is 55% Right Ventricle The right ventricle is normal size. The right ventricular systolic function is normal. Atria Left atrium is mildly dilated. Right atrium is mildly dilated. There is no color Doppler evidence of interatrial shunt. Aortic Valve The aortic valve is mildly thickened. There is no hemodynamically significant aortic valvular stenosis. Trace aortic regurgitation is present. Mitral Valve The mitral valve is normal in structure. No evidence of mitral valve stenosis. Mild mitral regurgitation is present. Tricuspid Valve The tricuspid valve leaflets are thin and pliable. Mild tricuspid regurgitation. RVSP is 20-25 mmHg. Pulmonic Valve The pulmonary valve is grossly normal in structure. Trace pulmonic valve regurgitation is present. Great Vessels The aortic root is normal in size. IVC is normal in size and collapses >50% with inspiration. Pericardium There is no pericardial effusion. Other Information Study Quality: Fair Conclusion Normal biventricular systolic function. Mild biatrial dilation. Mild MR, mild TR. Electronically signed by : Joycelyn Schwarz MD 03/15/2025 13:01:41
[2025-03-16] VITALS (9 sets, daily range): BP systolic 132–163; BP diastolic 55–85; PULSE 67–110; RESP 12–18; TEMP 36.2–37.4; O2SAT 98–99; BMI 25.6
[2025-03-16] MEDS: PHENOL THROAT SPRAY 177 ML BOTTLE MM (00:31)
[2025-03-16] MEDS: PIPERACILLIN/TAZO 4.5 GM in 0.9 % SODIUM CHLORIDE 100 ML IV ×3 (00:31→15:53)
--- NOTE | 2025-03-16 06:53 | PC.NURSE ---
40 ml emptied from ARIELLA drains
--- NOTE | 2025-03-16 07:08 | EXP.SURG.PN ---
Subjective Patient reports: no new complaints and feels better Exam Data for Last 24 hours Vital signs and Labs for Last 24 Hours: Temp Pulse Resp BP Pulse Ox O2 Del Method 97.8 F 90 12 160/75 H 98 Room Air 03/16/25 04:00 03/16/25 05:00 03/16/25 04:00 03/16/25 04:00 03/16/25 04:00 03/16/25 06:30 Laboratory Results - last 24 hr 03/15/25 05:30: Hemoglobin A1c 5.1, Triglycerides 58, Cholesterol 196, LDL Cholesterol Direct 81.53 L, VLDL Cholesterol 12, HDL Cholesterol 64 H, Cholesterol/HDL Ratio 3.1, TSH Cancelled I & O for Last 24 hours: Intake & Output 03/13/25 03/14/25 03/15/25 03/16/25 11:59 11:59 11:59 11:59 Intake Total 900 / 900 2480 / 2480 Output Total 0 / 0 850 / 850 Balance 900 / 900 1630 / 1630 Weight 143 lb 155 lb 4.8 oz 159 lb 6.4 oz Microbiology Reports for the Last 24 Hours: Microbiology 03/14/25 17:00 Blood Blood Culture - Preliminary NO GROWTH AFTER 24 HOURS 03/14/25 16:45 Blood Blood Culture - Preliminary NO GROWTH AFTER 24 HOURS Constitutional Constitutional: no acute distress *Routine Respiratory Exam Respiratory: Absent respiratory distress *Routine Cardiovascular Exam Cardiovascular: Absent tachycardia *Routine Abdominal Exam Comments: Dressings intact. Minimal Stephen-Porter drainage. Sanguinous drainage at ARIELLA drain sites (mild to moderate) Progress Note: A&P Assessment and plan (1) Acute calculous cholecystitis: Status: Acute Assessment and plan: Overall, doing well status post laparoscopic cholecystectomy. Replace dressings at ARIELLA drain sites as needed Continue overall management as per primary service Okay from surgical standpoint for discharge home with close outpatient follow-up
--- NOTE | 2025-03-16 07:32 | EXP.ANES.II ---
[facility] Anesthesia Record Part II Anesthesia Record Part II Discharge Time: 14:55 Destination: Medical Surgical Department PACU nurse assessment reviewed?: Yes Patient Condition:: Good Anesthesia Complications:: None Swallowing reflex intact?: Yes Airway Patency: Patent Cyanosis?: No Blood Pressure: 135/55 SaO2: 99 Respiratory Rate: 16 Pulse Rate: 67 Temperature: 97.2 F Mental Status: Alert & Oriented Pain level:: 0 Nausea and/or vomitting:: None Intake, IV Amount: 0 Hydration: Adequate
[2025-03-16 09:10] LABS: Hematocrit 35.1 % (37.0-47.0); Hemoglobin 11.0 g/dL (12.2-16.2); Immature Granulocytes % 0.3 %; Mean Corpuscular HGB Conc 31.3 g/dL (31.8-35.4); Mean Corpuscular Hemoglobin 29.4 pg (27.0-31.2); Mean Corpuscular Volume 93.9 fl (81-99); Nucleated Red Blood Cells % 0 %; Platelet Count 192 K/mm3 (142-424); Red Blood Count 3.74 M/mm3 (4.20-5.40); Red Cell Distribution Width-SD 48.4 fL; White Blood Count 10.9 K/mm3 (4.8-10.8)
[2025-03-16 10:08] LABS: Albumin Level 4.7 g/dl (3.5-5.0); Chloride 101 mmol/L (98-107)
[2025-03-16 10:09] LABS: Potassium 3.2 mmoL/L (3.5-5.1); Sodium 136 mmol/L (136-145)
[2025-03-16 10:11] LABS: Alanine Aminotransferase 50 U/L (12-78); Albumin/Globulin Ratio 1.9 (1.1-1.8); Alkaline Phosphatase 123 U/L (38-126); Anion Gap 10.2 mEq/L (5-15); Aspartate Amino Transferase 61 U/L (14-36); Bilirubin,Total 0.5 mg/dl (0.2-1.3); Blood Urea Nitrogen 12 mg/dl (7-17); Carbon Dioxide 28 mmol/L (22.0-30.0); Creatinine Clearance Estimated 49 mL/min (50-200); Creatinine,Serum 0.80 mg/dl (0.52-1.04); Estimated Glomerular Filt Rate 69 ml/min (>60); GFR (African American) 83 ML/MIN (>60); Globulin 2.5 g/dL (1.3-3.2); Total Protein,Serum 7.2 g/dl (6.3-8.2)
[2025-03-16 10:12] LABS: Calcium 9.0 mg/dl (8.4-10.2); Glucose 147 mg/dl (74-100); Magnesium 1.8 mg/dl (1.6-2.3)
[2025-03-16] MEDS: POTASSIUM CHLORIDE 20MEQ TAB 40 MEQ PO ×2 (12:06→15:52)
--- NOTE | 2025-03-16 13:12 | P.DS_ITS ---
General Admission date:: 03/14/25 HPI HPI HPI: This is an 84-year-old female seen in consultation after evaluation in the emergency department for complaints of chest tightness and upper abdominal pain. Initial cardiac evaluation revealed no definitive abnormality. A chest CT revealed abnormal gallbladder wall thickening. Follow-up ultrasound revealed cholelithiasis and a 5 mm wall. Secondary to these findings and associated sign ificant right upper quadrant tenderness, the patient was admitted to the Hospitalist service and surgical consultation was ordered. Forwarded from admission H&P: Ama Song is a 84-year-old female with no known past medical history (has not been to the doctor in quite a while) who presents with acute on chronic chest, abdominal pains. She states she has been dealing with abdominal pains, m ostly postprandial, for many months and has had intermittent chest pains during this course as well. Over the past day, patient states her chest pains have gotten significantly worse especially today at which point she decided to come to the ED. She denies any fever/chills, shortness of breath, nausea/vomiting, abnormal bowel movements, urinary symptoms, eating anything differently, changes in medications. Workup in the ED significant for CTA chest suggesting acute/chronic cholecystitis with RUQ ultrasound showing cholelithiasis with acute cholecystitis. Dr. Gilmore with general surgery was consulted who recommended admission with IV antibiotics and likely cholecystectomy in the morning. Patient agreeable to this. Given these findings, ED provider discussed case with me and I decided to admit patient for acute cholecystitis. Hospital Course Hospital Course Hospital Course: Ama Song is a 84-year-old female with no known past medical history (has not been to the doctor in quite a while) who presents with acute on chronic chest, abdominal pains. She states she has been dealing with abdominal pains, mostly postprandial, for many months and has had intermittent chest pains during this course as well. Over the past day, patient states her chest pains have gotten significantly worse especially today at which point she decided to come to the ED. She denies any fever/chills, shortness of breath, nausea/vomiting, abnormal bowel movements, urinary symptoms, eating anything differently, changes in medications. Workup in the ED significant for CTA chest suggesting acute/chronic cholecystitis with RUQ ultrasound showing cholelithiasis with acute cholecystitis. Dr. Gilmore with general surgery was consulted who recommended admission with IV antibiotics and likely cholecystectomy in the morning. Patient agreeable to this. Given these findings, ED provider discussed case with me and I decided to admit patient for acute cholecystitis. #Chest pain #Cholelithiasis #Acute cholecystitis ? Presented with acute on chronic chest, abdominal pains and found to have acute cholecystitis on RUQ ultrasound. ? Initial WBC normal, no signs of sepsis. Troponins normal, EKG without acute ischemic changes. ? General Surgery consulted, s/p laparoscopic cholecystomy on 03/15/2025. Stephen-Porter drains (x 2) placed in/anterior to gallbladder fossa, draining slight serosanguineous fluid. ? Patient feels much better today, tolerating p.o. intake without issues. Ambulating independently. ? Treated with Zosyn, no indication for antibiotics on discharge. ? ECHO revealed normal biventricular systolic function without wall motion abnormalities. Chest pain-free after surgery. ? Discharged with [place] as needed for pain. Will follow-up with general surgery within 1 week. #Normocytic anemia ? Hemoglobin 11.0, MCV 91. Stable. Exam Data for Last 24 hours Vital signs and Labs for Last 24 Hours: Temp Pulse Resp BP Pulse Ox O2 Del Method 98.7 F 107 H 18 132/81 98 Room Air 03/16/25 12:00 03/16/25 12:00 03/16/25 12:00 03/16/25 12:00 03/16/25 12:00 03/16/25 12:00 Laboratory Results - last 24 hr 03/15/25 05:30: TSH Cancelled 03/16/25 08:56: WBC 10.9 H D, RBC 3.74 L, Hgb 11.0 L, Hct 35.1 L, MCV 93.9, MCH 29.4, MCHC 31.3 L, RDW 14.0, Plt Count 192 D, MPV 10.4, Neut % (Auto) 85.4 H, Lymph % (Auto) 7.3 L, [place] % (Auto) 6.8, Eos % (Auto) 0.0 L, Baso % (Auto) 0.2, Neut # (Auto) 9.3 H, Lymph # (Auto) 0.8, [place] # (Auto) 0.7, Eos # (Auto) 0.0, Baso # (Auto) 0.0, Sodium 136, Potassium 3.2 L, Chloride 101, Carbon Dioxide 28, Anion Gap 10.2, BUN 12, Creatinine 0.80, Estimated Creat Clear 49, Estimated GFR 69, Est GFR ( Amer) 83, Glucose 147 H, Calcium 9.0, Magnesium 1.8, Total Bilirubin 0.5, AST 61 H, ALT 50 D, Alkaline Phosphatase 123, Total Protein 7.2, Albumin 4.7 D, Globulin 2.5, Albumin/Globulin Ratio 1.9 H I & O for Last 24 hours: Intake & Output 03/13/25 03/14/25 03/15/25 03/16/25 23:59 23:59 23:59 23:59 Intake Total 460 / 700 2580 / 2820 1600 / 1600 Output Total 0 / 0 500 / 500 350 / 350 Balance 460 / 700 2080 / 2320 1250 / 1250 Weight 64.864 kg 70.443 kg 72.303 kg Microbiology Reports for the Last 24 Hours: Microbiology 03/14/25 17:00 Blood Blood Culture - Preliminary NO GROWTH AFTER 24 HOURS 03/14/25 16:45 Blood Blood Culture - Preliminary NO GROWTH AFTER 24 HOURS Results Data Completed and Pending Labs on day of discharge: Labs from last 24 hours 03/16/25 03/15/25 08:56 05:30 WBC 10.9 H D RBC 3.74 L Hgb 11.0 L Hct 35.1 L MCV 93.9 MCH 29.4 MCHC 31.3 L RDW 14.0 Plt Count 192 D MPV 10.4 Neut % (Auto) 85.4 H Lymph % (Auto) 7.3 L [place] % (Auto) 6.8 Eos % (Auto) 0.0 L Baso % (Auto) 0.2 Neut # (Auto) 9.3 H Lymph # (Auto) 0.8 [place] # (Auto) 0.7 Eos # (Auto) 0.0 Baso # (Auto) 0.0 Sodium 136 Potassium 3.2 L Chloride 101 Carbon Dioxide 28 Anion Gap 10.2 BUN 12 Creatinine 0.80 Estimated Creat Clear 49 Estimated GFR 69 Est GFR ( Amer) 83 Glucose 147 H Calcium 9.0 Magnesium 1.8 Total Bilirubin 0.5 AST 61 H ALT 50 D Alkaline Phosphatase 123 Total Protein 7.2 Albumin 4.7 D Globulin 2.5 Albumin/Globulin Ratio 1.9 H TSH Cancelled Preliminary micro results at discharge 03/14/25 17:00 Blood Culture - Preliminary Blood NO GROWTH AFTER 24 HOURS 03/14/25 16:45 Blood Culture - Preliminary Blood NO GROWTH AFTER 24 HOURS DS: Diagnosis Discharge Diagnosis (1) Acute calculous cholecystitis: Status: Acute Code(s): K80.00 - Calculus of gallbladder with acute cholecystitis without obstruction Meds Home Medications and Allergies Home Medications ?Medication ?Instructions ?Recorded ?Confirmed ?Type multivitamin with minerals (One 1 ea PO DAILY Suppleme nt 04/23/18 03/14/25 History Daily Complete tablet) acetaminophen 325 mg tablet 325 mg PO QID PRN Pain (Sc shaun 03/14/25 03/14/25 History (Tylenol) Score 4-6) hydrocodone 5 mg-acetaminophen 325 1 tab PO Q6H PRN po st-op pain #17 03/15/25 Rx mg tablet tabs New Prescriptions to Start Prescriptions: hydrocodone-acetaminophen Miguel Gilmore Allergies Allergy/AdvReac Type Severity Reaction Status Date / Time No Known Allergies Allergy Verified 12/02/17 09:28 Discharge Plan Disposition Patient Disposition: Home, Self-Care Condition: Fair Follow up Plan Follow up with: Tala Morales APRN [Primary Care Provider, Medical] - 03/21/25 2:15 pm Miguel Gilmore MD [Staff Physician, General Surgery] - 03/21/25 10:30 am Prescriptions/Medication Reconciliation: New hydrocodone-acetaminophen 5-325 mg tablet 1 tab PO Q6H PRN (Reason: post-op pain) Qty: 17 0RF Rx Instructions: Do not take additional Tylenol while on [place] Continued One Daily Complete 1 EACH tablet 1 ea PO DAILY acetaminophen [Tylenol] 325 mg Tablet 325 mg PO QID PRN (Reason: Pain (Scale Score 4-6)) Problem Reconciliation Problems Reviewed?: Yes Patient Discharge Instructions ACTIVITY: Ambulate as tolerated and No heavy lifting DIET: advance to your usual diet Additional Instructions: Remove dressings and shower after 48 hours Maintain Stephen-Porter drains to bulb suction Record Stephen-Porter drainage output at least daily Patient Instructions: Gallstones, Low-Fiber/Low-Residue Diet, DI for Gallstones, DI for Surgical Site Infection, DI for Cholecystitis, DI for Laparoscopic Cholecystectomy Print Language: [place] Providers Primary Care Provider: Tala Morales Provider: Kurtis Asher Attending Provider: Kurtis Asher
[2025-03-16] MEDS: ACETAMINOPHEN 325MG TAB 650 MG PO (17:56)
--- NOTE | 2025-03-19 10:33 | SW/DCPLANNER ---
Spoke with patient on the phone. Patient stated that she is doing well. Patient stated that she is aware of her upcoming appointments. 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 Patient stated that she has no concerns or questions at this time. Carmen Mendez
== END 2025-03-16 19:06 | disposition home or self-care (01) ==
LOC: ER 11:57 → 2ND 16:45
PROVIDERS: Nurse Practitioner Family; Student in an Organized Health Care Education/Training Program; Surgery; Admitting Provider Student in an Organized Health Care Education/Training Program; Emergency Provider Student in an Organized Health Care Education/Training Program; PCP Nurse Practitioner; Visit Provider Student in an Organized Health Care Education/Training Program
PROC: 0FT44ZZ Resection of Gallbladder, Percutaneous Endoscopic Approach (ICD-10-PCS; CPT 47562; principal; 2025-03-15 12:00)
DX: K80.10 Calculus of gallbladder with chronic cholecystitis without obstruction (principal); D36.7 Benign neoplasm of other specified sites; I10 Essential (primary) hypertension; R00.0 Tachycardia, unspecified; D64.9 Anemia, unspecified; Z90.49 Acquired absence of other specified parts of digestive tract; Z85.038 Personal history of other malignant neoplasm of large intestine; I34.0 Nonrheumatic mitral (valve) insufficiency; I07.1 Rheumatic tricuspid insufficiency
CPT/HCPCS: 47562; 36415; 71045; 71275; 76705; 80053; 80061; 83036; 83690; 83735; 84484; 85025; 85378; 86803; 87040; 87389; 88304; 93005; 93306; 96365; 96375; 96376; 99285; G0378; J0690; J1100; J1885; J2003; J2371; J2543; J2704; J3010; J7120; Q9967

== ENCOUNTER 2025-04-05 08:59 | Emergency (ER) | payer MEDICARE, SELFPAY ==
[2025-04-05] VITALS (9 sets, daily range): BP systolic 123–192; BP diastolic 59–99; PULSE 73–104; RESP 13–22; TEMP 36.8; O2SAT 95–99; BMI 25.2
--- NOTE | 2025-04-05 09:10 | ECG_ITS ---
APPROVED REPORT Exam: Resting ECG HR:102 bpm ECG Measurements Heart Rate 102 AXES NV 172 P 59 QRSd 85 QRS 61 QT 316 T 47 QTc 374 Conclusion SINUS TACHYCARDIA ABNORMAL RHYTHM ECG UNCONFIRMED REPORT Sinus tachycardia. No ST elevation or depression. QTc normal 374 Electronically signed by : JONATHAN DIETRICH, 04/05/2025 14:24:03
--- NOTE | 2025-04-05 09:20 | CT_ITS ---
FINAL REPORT TECHNIQUE: The patient was injected with IV contrast. Axial images were obtained through the chest in a PE protocol. 3-D reconstruction images were also performed. Individualized dose reduction techniques using automated exposure control or adjustment of the MA and/or KV according to patient's size were employed. CLINICAL HISTORY: SOB, chest pain, tachy, PE vs pneumonia COMPARISON: 03/14/2025 FINDINGS: Mediastinal vasculature is adequately opacified. No pulmonary artery filling defects are identified to suggest PE. There is no aortic dissection. There is a small focus of mural thrombus noted in the proximal descending aorta best seen on image #43 of series 9, stable since the prior exam of 03/14/2025. There is no axillary adenopathy. There is no hilar or mediastinal adenopathy. The heart size is normal. There is no pericardial or pleural effusion. Limited images of the upper abdomen are unremarkable. No suspicious infiltrate or nodule is identified. Minimal chronic changes are noted in the lung bases. IMPRESSION: No pulmonary embolus or dissection. 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 Reviewed, Interpreted and Dictated by Jay Rodriguez MD Transcribed by Jeana Son Authenticated and [facility]
--- NOTE | 2025-04-05 09:20 | CT_ITS ---
FINAL REPORT TECHNIQUE: multiple axial CT images were performed from the foramen magnum to the vertex without enhancement. This study was performed with techniques to keep radiation doses as low as reasonably achievable (ALARA). Individualized dose reduction techniques using automated exposure control or adjustment of mA and/or kV according to the patient's size were employed. CLINICAL HISTORY: intermittent confusion COMPARISON: None FINDINGS: CT HEAD: The ventricles are mildly enlarged. There is moderate diffuse atrophy. There is periventricular white matter change likely related to small vessel disease. There is no evidence of hemorrhage. No masses are identified. No extra-axial fluid is seen. The sinuses are normal. IMPRESSION: Atrophy and chronic changes without acute process. Reviewed, Interpreted and Dictated by Jay Rodriguez MD Transcribed by Jeana Son Authenticated and [facility]
--- NOTE | 2025-04-05 09:22 | CA_ITS ---
FINAL REPORT TECHNIQUE: Bilateral lower extremity venous duplex was performed with augmentation and compression. CLINICAL HISTORY: BILATERAL [place],SOA COMPARISON: None FINDINGS: Proper flow is seen throughout the deep venous systems bilaterally. There is no evidence of deep venous thrombosis. IMPRESSION: No evidence of deep venous thrombosis. Reviewed, Interpreted and Dictated by Jay Rodriguez MD Transcribed by Jeana Son Authenticated and [facility]
--- NOTE | 2025-04-05 09:23 | ED_ITS ---
Discharge Plan Disposition Patient Disposition: Home, Self-Care Prescriptions Prescriptions: New cefdinir 300 mg capsule 300 mg PO BID 5 Days Qty: 10 0RF No Action One Daily Complete 1 EACH tablet 1 ea PO DAILY acetaminophen [Tylenol] 325 mg Tablet 325 mg PO QID PRN (Reason: Pain (Scale Score 4-6)) Referrals Follow up/Referrals: Tala Morales APRN [Primary Care Provider, Medical] - See instructions Activity Restrictions/Add. Instructions Additional Instructions/Restrictions: Your workup today shows evidence of a mild urinary tract infection. I am prescribing a 5-day course of cefdinir to treat this infection. I do encourage you to follow-up with your primary care doctor early next week for reassessment. There is no evidence of blood clot on your scans and ultrasound today. If you develop any new or worsening symptoms, or if you become concerned for your help for any reason, return to the emergency department for evaluation Clinical Impressions Clinical Impression: Urinary tract infection Print Language Print Language: Belarusian Discharge ED Provider: Sebastian Urrutia General Chief Complaint: Shortness of Breath/Dyspnea Stated Complaint: sent by doctor, poss PE, UTI Time Seen by Provider: 04/05/25 09:10 Mode of Arrival: Ambulatory Source of Information: Patient Limitations: No Limitations History of Present Illness HPI narrative: Rubina Song is an 84-year-old female with a history of laparoscopic cholecystectomy performed by Dr. Gilmore on 15 March, colon cancer status post colon resection 2 years ago, hypertension who presents to the emergency department with daughter for concern for shortness of breath and bilateral lower extremity weakness. History provided by patient and daughter. Daughter states that over the last few weeks, she has had intermittent episodes of transient confusion, stating that recently she is trying to become patient's POA and was with a university relations recruiter and the patient forgot her daughters names. She states that she lives in apartment complex close to her and this morning she got up out of bed and felt that both of her legs were weak and fell back into the bed. She was also short of breath and breathing fast at this time. She denies hitting her head or losing consciousness. She states that she had a very brief episode of chest pain last night. She states that getting up out of her chair this morning in the lobby of the emergency department she felt short of breath and that her legs were weak. She was seen by her PCP who sent her to the emergency department for concern for DVT/PE. She was noted to be tachycardic at this appointment visit. Daughter states that she is not on any blood thinning medication. She does report some increased urinary frequency this morning but denies any dysuria. She does not have any abdominal pain has not had any fevers. Related Data Home Medications ?Medication ?Instructions ?Recorded ?Confirmed multivitamin with minerals (One 1 ea PO DAILY Suppleme nt 04/23/18 03/28/25 Daily Complete tablet) acetaminophen 325 mg tablet 325 mg PO QID PRN Pain (Sc shaun 03/14/25 03/28/25 (Tylenol) Score 4-6) Previous Rx's ?Medication ?Instructions ?Recorded cefdinir 300 mg capsule 300 mg PO BID 5 days #10 cap s 04/05/25 Allergies Allergy/AdvReac Type Severity Reaction Status Date / Time No Known Allergies Allergy Verified 03/28/25 11:32 [facility] Disclaimer: The information contained in this section may have been updated after the patient was seen, as this information can be updated by other users. Surgical History History of laparoscopic cholecystectomy Family History (Updated 04/05/25 @ 09:17 by Rashmi Roe RN) Other No significant family history Social History Smoking Status: Never smoker second hand exposure: No alcohol intake: never substance use type: unknown current occupational status: other Travel in the last 8 weeks?: None household members: other housing: other current occupational exposures/hazards: No caffeine: No Have you lived/traveled outside [place] in past 30 days?: No Contact w/someone who lives/traveled outside US past 30 days?: No Exposure to someone with infectious disease in past 14 days?: No Do you have a fever (greater than 100.4 F or 38 C)?: No Have you tested positive for COVID-19?: No Exposed to someone with COVID-19 in past 14 days?: No Do you have a sore throat?: No Do you have a cough?: No Do you have any weakness?: No Do you have any diarrhea?: No Are you experiencing any unusual bleeding?: No Do you have any muscle aches/pain?: No Do you have any abdominal pain?: No Are you experiencing loss of taste or smell?: No Other Medical History Have you received the Flu Vaccine for this season: No Have you received the Pneumonia Vaccine: No ROS Obtained: Yes Systems reviewed as appropriate & no additional complaints except as documented Physical Exam General General appearance: alert and in no apparent distress Head Head exam: atraumatic Eye Eye exam: Present normal appearance ENT ENT exam: Present normal external ear exam Neck Neck exam: Present full ROM Chest Chest inspection: Present symmetric chest wall rise Respiratory Respiratory exam: Present normal lung sounds bilaterally; Absent respiratory distress, wheezes or stridor Cardiovascular Cardiovascular exam: Present regular rate and normal rhythm Abdominal Exam Abdominal exam: Present soft; Absent distention, tenderness, guarding or rigidity Extremities Exam Extremities exam: Present normal inspection and edema (Nonpitting edema to the distal bilateral lower extremities) Back Exam Back exam: Present normal inspection Neurological Exam Neurological exam: Present alert and oriented X3; Absent motor sensory deficit Psychiatric Psychiatric exam: Present normal affect Skin Skin exam: Present warm and dry HEART Score HEART Score HEART Score assessment performed?: Yes History (anamnesis): Slightly suspicious ECG: Normal Age: >65 years Risk factors: 1-2 risk factors Troponin: </= normal limit HEART Score: 3 Critical Care Critical Care Time Critical Care Time: No Medical Decision Making Win Inquiry Pt receiving controlled substance: No Vital Signs Vital Signs: 04/05/25 09:09 04/05/25 09:15 04/05/25 09:15 Temperature 98.3 F 98.3 F Temperature Source Oral Pulse Rate 104 H 101 H Pulse Rate [Right] 101 H Respiratory Rate 18 18 Blood Pressure 192/99 H 192/99 H Blood Pressure [Right Arm] 192/99 H Blood Pressure Mean 113 Blood Pressure Mean [Right Arm] 130 02 Sat by Pulse Oximetry 97 95 95 Oxygen Delivery Method Room Air 04/05/25 09:25 04/05/25 09:30 04/05/25 10:00 Temperature Temperature Source Pulse Rate 100 H 73 Pulse Rate [Right] Respiratory Rate 22 13 Blood Pressure 175/76 H 132/73 Blood Pressure [Right Arm] Blood Pressure Mean Blood Pressure Mean [Right Arm] 02 Sat by Pulse Oximetry 95 98 98 Oxygen Delivery Method Room Air Room Air Room Air 04/05/25 11:00 04/05/25 11:30 04/05/25 12:00 Temperature Temperature Source Pulse Rate 88 79 83 Pulse Rate [Right] Respiratory Rate 18 14 15 Blood Pressure 154/72 H 123/65 137/59 L Blood Pressure [Right Arm] Blood Pressure Mean Blood Pressure Mean [Right Arm] 02 Sat by Pulse Oximetry 98 99 98 Oxygen Delivery Method Room Air Room Air Room Air Lab Data Labs: Lab Results 04/05/25 09:30: Chlamy pneumoniae PCR Not detected, Adenovirus (PCR) Not detected, B. pertussis DNA (PCR) Not detected, Coronavirus OC43 (PCR) Not detected, Coronavirus HKU1 (PCR) Not detected, Coronavirus 229E (PCR) Not detected, SARS-CoV-2 (PCR) Not detected, Coronavirus NL63 (PCR) Not detected, Human Metapneumovir PCR Not detected, Influenza A (H1) PCR Not detected, Influ A (H1N1/09) PCR Not detected, Influenza A (H3) PCR Not detected, Influenza Type A (PCR) Not detected, Influenza Type B (PCR) Not detected, M. pneumoniae (PCR) Not detected, Parainfluenza 1 (PCR) Not detected, Parainfluenza 2 (PCR) Not detected, Parainfluenza 3 (PCR) Not detected, Parainfluenza 4 (PCR) Not detected, RSV (PCR) Not detected, Entero/Rhino (PCR) Not detected 04/05/25 09:39: WBC 5.4, RBC 3.91 L, Hgb 11.4 L, Hct 36.0 L, MCV 92.1, MCH 29.2, MCHC 31.7 L, RDW 13.8, Plt Count 210, MPV 10.8 H, Neut % (Auto) 69.9, Lymph % (Auto) 15.1, [place] % (Auto) 12.9 H, Eos % (Auto) 1.5, Baso % (Auto) 0.4, Neut # (Auto) 3.7, Lymph # (Auto) 0.8, [place] # (Auto) 0.7, Eos # (Auto) 0.1, Baso # (Auto) 0.0, Sodium 142, Potassium 3.8, Chloride 98, Carbon Dioxide 32 H, Anion Gap 15.8 H, BUN 11, Creatinine 0.70, Estimated Creat Clear 45, Estimated GFR 80, Est GFR ( Amer) 97, Glucose 123 H, Calcium 10.1, Total Bilirubin 0.4, AST 31, ALT 23, Alkaline Phosphatase 71, Troponin I < 0.01, C-Reactive Protein 33.7 H, NT-Pro-B Natriuret Pep 639 H, Total Protein 7.8, Albumin 4.4, Globulin 3.4 H, Albumin/Globulin Ratio 1.3, Lipase 66 04/05/25 09:41: VBG pH 7.37, VBG pCO2 53.5 H, VBG pO2 32.3, VBG HCO3 30.1 H, VBG Total CO2 31.7 H, VBG O2 Saturation 60.0, VBG Base Excess 4.8 H, VBG Lactic Acid 2.3 H 04/05/25 10:30: Urine Color Yellow, Urine Appearance Clear, Urine pH 7.0, Ur Specific [place] 1.010, Urine Protein Negative, Urine Glucose (UA) Negative, Urine Ketones Negative, Urine Blood Negative, Urine Nitrate Negative, Urine Bilirubin Negative, Urine Urobilinogen 0.2, Ur Leukocyte Esterase 1+ A, Urine RBC None, Urine WBC 10-20, Ur Squamous Epith Cells 5-10, Urine Bacteria Trace 04/05/25 12:10: Troponin I < 0.01 04/05/25 09:39 04/05/25 09:39 Response Orders (Tests/Meds): ED MEDICATIONS Discontinued Medications Generic Name Dose Route Start Last Admin Trade Name Freq PRN Reason Stop Dose Admin Iopamidol 70 ml 04/05/25 10:15 04/05/25 10:16 Iopamidol-370 (76%);100ml Bottle IV 04/05/25 10:16 70 ml ONCE ONE Administration Sodium Chloride 50 ml 04/05/25 10:15 04/05/25 10:16 0.9 % Sodium Chloride 50 Ml Vial IV 04/05/25 10:16 50 ml ONCE ONE Administration Sodium Chloride 10 ml 04/05/25 10:15 04/05/25 10:16 Sodium Chloride 0.9% 10ml Syr (Rad Only) IV 04/05/25 10:16 10 ml ONCE ONE Administration ORDERS Category Date Time Status CT angio chest PE protocol Stat Cat Scan 04/05/25 09:[address] head/brain wo con Stat Cat Scan 04/05/25 09:20 Completed BNP [NT Pro Brain Natriuretic Pep.] Stat Lab 04/05/25 09:39 Completed CBC w/Auto Diff [Complete Blood Count Auto Diff] Stat Lab 04/05/25 09:39 Completed CMP [Comprehensive Metabolic Panel] Stat Lab 04/05/25 09:39 Completed CRP [C-Reactive Protein] Stat Lab 04/05/25 09:39 Completed Full Resp Panel w/COVID ([facility]) Routine Lab 04/05/25 09:30 Completed Lipase Stat Lab 04/05/25 09:39 Completed Troponin I Q3H Lab 04/05/25 12:10 Completed Troponin I Q3H Lab 04/05/25 15:30 Ordered Troponin I Stat Lab 04/05/25 09:39 Completed UA [Urinalysis and Microscopic] Stat Lab 04/05/25 10:30 Completed Urine Culture Stat Micro 04/05/25 10:30 Received VBG [Venous Blood Gas] Stat RT 04/05/25 09:41 Completed CA venous doppler LE BI Stat Y 04/05/25 09:22 Completed ECG Data Tracing #1: Attestation: I reviewed this ECG and interpreted as documented below: ECG Narrative: Sinus tachycardia. No ST elevation or depression. QTc normal at 374. MDM Narrative Medical Decision Narrative: Rubina Song is an 84-year-old female with a history of laparoscopic, cholecystectomy performed by Dr. Gilmore on 15 March, colon cancer status post colon resection 2 years ago, hypertension who presents to the emergency department with daughter for concern for shortness of breath and bilateral lower extremity weakness. History provided by patient and daughter. Daughter states that over the last few weeks, she has had intermittent episodes of transient confusion, stating that recently she is trying to become patient's POA and was with a university relations recruiter and the patient forgot her daughters names. She states that she lives in apartment complex close to her and this morning she got up out of bed and felt that both of her legs were weak and fell back into the bed. She was also short of breath and breathing fast at this time. She denies hitting her head or losing consciousness. She states that she had a very brief episode of chest pain last night. She states that getting up out of her chair this morning in the lobby of the emergency department she felt short of breath and that her legs were weak. She was seen by her PCP who sent her to the emergency department for concern for DVT/PE. She was noted to be tachycardic at this appointment visit. Daughter states that she is not on any blood thinning medication. She does report some increased urinary frequency this morning but denies any dysuria. She does not have any abdominal pain has not had any fevers. On arrival, patient is mildly tachycardic with a heart rate of 101 bpm. Hypertensive with blood pressure 192/99, afebrile temperature 98.3 ?F. Oxygen saturation 95% on room air. Physical exam, stated above, revealed an overall well and nontoxic-appearing female in no distress. She is alert and answering questions appropriately. She is moving all extremities. She does not appear disoriented at this time. Cardiopulmonary [place] reveals tachycardia but no murmurs or rubs. No wheezing, rales or rhonchi. Abdomen is soft, nontender nondistended. She has some mild nonpitting edema to the distal bilateral lower extremities. Differential diagnosis includes, but is not limited to: Pulmonary embolism, pneumonia, DVT, ACS, pericarditis, carditis, viral respiratory illness, urinary tract infection. Low concern for intra-abdominal infection at this time as she is afebrile and has no abdominal pain and her symptoms have been improving since her recent cholecystectomy. Workup in the emergency department clued: CT head without contrast, CT angio pulmonary was a protocol, CBC with differential, CMP, troponin, BNP, CRP, VBG with lactate, urinalysis, EKG, full respiratory panel, bilateral lower extremity venous duplex ultrasound. EKG was interpreted by me personally showed sinus tachycardia without ischemic changes or prolongation of ME or QTc intervals. See interpretation above Lab work is grossly unremarkable and nonactionable with no leukocytosis, stable low hemoglobin, VBG with pH of 7.37, pCO2 mildly elevated at 53.5, bicarb mild elevated 31.7, lactic acid of 2.3. Electrolytes within normal limits. Very mildly elevated anion gap of 15.8. No CHRIST. Troponin negative x 2. Liver enzymes and bili within normal limits. CRP elevated 33.7, NT-proBNP elevated at 639. Lipase of 66. Urinalysis shows 1+ leukocyte esterase as well as 10-20 white blood cells with trace bacteria. This could be territory service representative of a urinary tract infection. CT imaging was interpreted by me personally. No intracranial hemorrhage, mass or midline shift. No pulmonary embolism or dissection of the aorta. No ground glass opacities to suggest pneumonia. See radiology report for final details. DVT ultrasound showed no evidence of DVT bilaterally in the lower extremity On reassessment, patient's blood pressure has improved. I do feel that her symptomatology could be explained by her urinary tract infection and that she would benefit from a course of antibiotics. Will prescribe a 5-day course of cefdinir. Return precautions were given. All questions were answered. She and her daughter demonstrated understanding and was in agreement this plan. She was then discharged from the emergency department in stable condition.
[2025-04-05 09:38] LABS: Adenovirus,PCR Not Detected (NotDetected); Chlamydophila Pneumoniae, PCR Not Detected (NotDetected); Coronavirus 19, PCR Not Detected (NotDetected); Coronovirus HKU1,PCR Not Detected (NotDetected); Influenza A, PCR Not Detected (NotDetected); Influenza AH1, 2009 Not Detected (NotDetected); Influenza AH1, PCR Not Detected (NotDetected); Influenza AH3,PCR Not Detected (NotDetected); Influenza B, PCR Not Detected (NotDetected); Mycoplasma Pneumoniae, PCR Not Detected (NotDetected); Parainfluenza 1, PCR Not Detected (NotDetected); Parainfluenza 2, PCR Not Detected (NotDetected); Parainfluenza 3, PCR Not Detected (NotDetected); Parainfluenza 4, PCR Not Detected (NotDetected)
--- NOTE | 2025-04-05 09:40 | PC.NURSE ---
VASCULAR AT BEDSIDE
[2025-04-05 09:48] LABS: VBG HCO3 30.1 mmol/L (23-30); VBG PH 7.37 mmol/L (7.31-7.41); VBG PO2 32.3 mmol/L (28-40)
[2025-04-05 09:50] LABS: Hematocrit 36.0 % (37.0-47.0); Hemoglobin 11.4 g/dL (12.2-16.2); Immature Granulocytes % 0.2 %; Mean Corpuscular HGB Conc 31.7 g/dL (31.8-35.4); Mean Corpuscular Hemoglobin 29.2 pg (27.0-31.2); Mean Corpuscular Volume 92.1 fl (81-99); Nucleated Red Blood Cells % 0 %; Platelet Count 210 K/mm3 (142-424); Red Blood Count 3.91 M/mm3 (4.20-5.40); Red Cell Distribution Width-SD 46.8 fL; White Blood Count 5.4 K/mm3 (4.8-10.8)
[2025-04-05 09:51] LABS: Lactate Venous 2.3 mmol/L (0.4-2.0); VBG PCO2 53.5 mmol/L (35-51)
[2025-04-05 09:58] LABS: Albumin Level 4.4 g/dl (3.5-5.0); Chloride 98 mmol/L (98-107)
[2025-04-05 09:59] LABS: Potassium 3.8 mmoL/L (3.5-5.1); Sodium 142 mmol/L (136-145)
[2025-04-05 10:01] LABS: Alanine Aminotransferase 23 U/L (12-78); Aspartate Amino Transferase 31 U/L (14-36); Blood Urea Nitrogen 11 mg/dl (7-17); Creatinine Clearance Estimated 45 mL/min (50-200); Creatinine,Serum 0.70 mg/dl (0.52-1.04); Estimated Glomerular Filt Rate 80 ml/min (>60); GFR (African American) 97 ML/MIN (>60)
[2025-04-05 10:02] LABS: Albumin/Globulin Ratio 1.3 (1.1-1.8); Alkaline Phosphatase 71 U/L (38-126); Anion Gap 15.8 mEq/L (5-15); Bilirubin,Total 0.4 mg/dl (0.2-1.3); Calcium 10.1 mg/dl (8.4-10.2); Carbon Dioxide 32 mmol/L (22.0-30.0); Globulin 3.4 g/dL (1.3-3.2); Glucose 123 mg/dl (74-100); Lipase 66 U/L (23-300); Total Protein,Serum 7.8 g/dl (6.3-8.2)
[2025-04-05 10:11] LABS: NT Pro Brain Natriuretic Pep. 639 pg/mL (0-450)
[2025-04-05 10:15] LABS: Troponin I < 0.01 ng/ml (0.00-0.034)
[2025-04-05] MEDS: 0.9 % SODIUM CHLORIDE 50 ML VIAL IV (10:16)
[2025-04-05] MEDS: SODIUM CHLORIDE 0.9% 10ML SYR (RAD ONLY) 10 ML IV (10:16)
[2025-04-05] MEDS: IOPAMIDOL-370 (76%);100ML BOTTLE 70 ML IV (10:16)
--- OUTSIDE RECORDS SUMMARY | 2025-04-05 10:23 | XMS_ITS | Clinical Summary ---
Author Organization Healthcare Address [address] [place] [address] Care Team Providers Care Referral Agent Name Role Phone Brian Plaza MD Primary Care Provider Family History Medical History Relation Name Comments [...] of Treatment Not on file Care Teams Referral Agent Relationship Specialty Start Date End Date Brian Plaza MD [address] [place] [address] [address] [id number] PCP - General 09/27/20
[2025-04-05 10:29] LABS: C-Reactive Protein 33.7 mg/L (0-4)
[2025-04-05 10:34] LABS: Microscopic, Urine URINE MICROSCOPIC (MICROSCOPIC)
[2025-04-05 10:37] LABS: Bilirubin,Urine Negative (Negative); Color,Urine YELLOW (Yellow); Glucose,Urine (UA) Negative (Negative); Ketones,Urine Negative (Negative); Leukocyte Esterase,Urine 1+ (Negative); PH,Urine 7.0 (5.0-8.5); Protein,Urine Negative (Negative); Specific Gravity, Urine 1.010 (1.005-1.030); Urobilinogen,Urine 0.2 EU/dl (0.2)
[2025-04-05 10:50] LABS: Bacteria,Urine Trace /lpf
[2025-04-05 12:52] LABS: Troponin I < 0.01 ng/ml (0.00-0.034)
[2025-04-05 13:49] LABS: Reflex Lactic Add Lactic Reflex
== END 2025-04-05 13:13 | disposition home or self-care (01) ==
PROVIDERS: Emergency Provider Student in an Organized Health Care Education/Training Program; PCP Nurse Practitioner
DX: R06.02 Shortness of breath (principal); N39.0 Urinary tract infection, site not specified; R00.0 Tachycardia, unspecified; R53.1 Weakness; R35.0 Frequency of micturition; B96.89 Other specified bacterial agents as the cause of diseases classified elsewhere
CPT/HCPCS: 0223U; 70450; 71275; 80053; 81001; 82803; 83690; 83880; 84484; 85025; 86140; 87086; 93005; 93970; 99285; Q9967